=== PATIENT | female | born 1950 | race African-American/Black ===

== ENCOUNTER 2018-08-31 10:18 | Inpatient (IN) | payer OTHER, MEDICAID ==
[~2018-08-31] VITALS: Ht 157.5 cm; Wt 84.4 kg
[~2018-08-31 10:18] MED LIST: AMIO200T PO; AMLO5TAB PO; CYAN500T17 PO; DULO30EC PO; FLUO40CA6 PO; GABA100C PO; HYDR1TAB28 PO; LORA-476 PO; THIA50TA PO; WARF-18 PO; WARF2.5T77 PO
[2018-08-31 10:30] VITALS: BP 135/68
--- NOTE | 2018-08-31 10:36 | NUR ---
PT AMBULATES TO BED 3
--- NOTE | 2018-08-31 10:41 | NUR ---
PATIENT PRESENTS TO ED WITH C/O COUGHING UP BLOODY PHLEGM. PT REPORTS BEING DIAGNOSED WITH PNEUMONIA 2 DAYS AGO. SYMPTOMS ARE WORSENING. PAIN IN CHEST AND BACK, SORE STOMACH. 7/10 PAIN. HX: HTN, PACEMAKER, AFIB, CHRONIC FATIGUE, FIBROMYALGIA RX: AMIODORONE, ELIQUIS, ATIVAN, ESTRODIAL .AAOX4 WITH EVEN AND STEADY GAIT; RHOCHI LUNGS SOUNDS KIM; COUGHING NOTED, HR EVEN AND REGULAR; PATIENT POSITIONED FOR COMFORT; HOB ELEVATED; BEDRAILS UP X2; BED DOWN. ER MD MADE AWARE OF PT STATUS.
--- NOTE | 2018-08-31 10:44 | NUR ---
Patient being evaluated by physician at bedside.
[2018-08-31] MEDS ORDERED: ACETAMINOPHEN 650 MG/20.3 ML UDC PO ONE (11:00)
[2018-08-31 11:17] LABS: BASOPHILS % (AUTO) 0.2 % (0.0-2.0); EOSINOPHILS # (AUTO) 0.1 K/uL (0-0.4); EOSINOPHILS % (AUTO) 0.8 % (0.0-4.0); HEMATOCRIT 30.8 % (36-48); HEMOGLOBIN 10.3 g/dL (12.0-16.0); LYMPHOCYTES % (AUTO) 10.6 % (20.5-51.1); MEAN CORPUSCULAR HEMOGLOBIN 29 pg (27-31); MEAN CORPUSCULAR HGB CONC 34 g/dL (33-37); MEAN CORPUSCULAR VOLUME 85.4 fL (80-94); MONOCYTES # (AUTO) 1.4 K/uL (0.8-1.0); MONOCYTES % (AUTO) 14.7 % (1.7-9.3); NEUTROPHILS # (AUTO) 7.2 K/uL (1.8-7.7); NEUTROPHILS % (AUTO) 73.7 % (42.2-75.2); PLATELET COUNT (AUTO) 205 K/uL (140-450); RED BLOOD CELL COUNT(AUTO) 3.61 MIL/uL (4.20-5.40); RED CELL DISTRIBUTION WIDTH 15.4 % (11.6-13.7); WHITE BLOOD COUNT (AUTO) 9.8 K/uL (4.8-10.8)
--- NOTE | 2018-08-31 11:27 | NUR ---
PT TAKEN TO XRAY VIA WHEELCHAIR
--- NOTE | 2018-08-31 13:45 | NUR ---
PT STATED HUNGRY, SMALL SNACK OFFERED.
--- NOTE | 2018-08-31 14:00 | NUR ---
HOME MEDICATIONS OBTAINED FROM PT, AND PUT IN THE COMPUTOR.
[2018-08-31] MEDS ORDERED: MEDICATION REC. PHARMACY CONS. 1 EA MISC MC PRN (14:10)
[2018-08-31] MEDS ORDERED: APIX5TAB PO (14:16)
[2018-08-31] MEDS ORDERED: LAM200 PO (14:16)
[2018-08-31] MEDS ORDERED: [UNRECOGNIZED DRUG - CODE] PO (14:16)
[2018-08-31] MEDS ORDERED: [UNRECOGNIZED DRUG - CODE] IM (14:16)
[2018-08-31] MEDS ORDERED: FLUO10CA21 PO (14:16)
--- NOTE | 2018-08-31 14:18 | NUR ---
PT IS NOT ABLE TO GIVE URINE AT THIS TIME, ED MD AWARE.
[2018-08-31] MEDS ORDERED: HYDROcodone/APAP 7.5/325 MG 1 TAB PO PRN (14:20)
[2018-08-31] MEDS ORDERED: DOCUSATE SODIUM 100 MG GELCAP PO PRN (14:20)
[2018-08-31] MEDS ORDERED: ACETAMINOPHEN 325 MG TAB PO PRN (14:20)
--- NOTE | 2018-08-31 14:30 | NUR ---
PT TAKEN TO TELE FLOOR BY MAYRA PRUITT AND DEBBIE OTT
--- NOTE | 2018-08-31 14:35 | NUR ---
PT ARRIVED FROM ER IN [facility], AMBULATED WITH STEADY GAIT TO HALLWAY TO BED 128B, PT HERE ACCOMPANIED BY BOYFRIEND, PT PLACED ON BOX CAR BRACER, PT ON 2L NC, AWAKE ALERT O X4, RESP EVEN UNLABORED, OCCASIONAL COUGHS, SKIN WARM DRY COLOR SLIGHTLY PALE, MOVES ALL EXT, SKIN INTACT, MRSA COLLECTED, PT ORIENTED TO ROOM AND FLOOR, POC REVIEWED, ALL SAFETY MEASURES IN PLACE, WILL CONTINUE TO MONITOR.
--- NOTE | 2018-08-31 14:35 | NUR ---
Pt transferred to Tele via GURNEY, GOES TO ROOM 128B, REPORT GIVEN TO MAYRA FONG AT BEDSIDE, ALL BELONGS GOES WITH PT .
[2018-08-31 14:39] LABS: ANION GAP 13.2 (8-16); CARBON DIOXIDE 27.1 mmol/L (21-32); CREATININE 0.9 mg/dL (0.6-1.3); POTASSIUM 3.3 mmol/L (3.5-5.1)
[2018-08-31 14:48] LABS: PROTHROMBIN TIME 9.9 secs (10.8-13.4)
--- NOTE | 2018-08-31 14:50 | NUR ---
RT AT BEDSIDE FOR ABG.
[2018-08-31 14:58] LABS: CHOL/HDL RATIO 1.3 (1-4.5); FREE T4 (FREE THYROXINE) 1.69 ng/dL (0.76-1.46); MAGNESIUM 1.8 mg/dL (1.8-2.4); PHOSPHORUS 3.3 mg/dL (2.5-4.9)
--- NOTE | 2018-08-31 15:15 | NUR ---
PT UP TO BATHROOM WITH MINIMAL ASSIST.
--- NOTE | 2018-08-31 15:40 | NUR ---
DR SHAFFER AT BEDSIDE.
[2018-08-31] MEDS: NACL 0.9% 1,000 ML IV SCH (15:53)
[2018-08-31 17:00] VITALS: BP 125/67
--- NOTE | 2018-08-31 17:30 | NUR ---
PT AMBULATED TO BATHROOM WITH STEADY SLOW GAIT, ASSISTED BACK TO BED, CALL HART WITHIN REACH, BED ALARM ON, WILL CONTINUE TO MONITOR.
[2018-08-31 18:11] LABS: APPEARANCE,URINE CLEAR (CLEAR); BILIRUBIN,URINE NEGATIVE (NEGATIVE); BLOOD, URINE NEGATIVE (NEGATIVE); COLOR,URINE YELLOW (YELLOW); LEUKOCYTE ESTERASE ,URINE NEGATIVE (NEGATIVE); NITRITE, URINE NEGATIVE (NEGATIVE); UGLUCOSE NEGATIVE (NEGATIVE)
--- NOTE | 2018-08-31 18:15 | NUR ---
DINNER TRAY DELIVERED TO PT, PT ENCOURAGED TO SIT UP IN CHAIR FOR DINNER BUT PT STATED SHE PREFERS TO EAT IN BED, ASSISTED WITH DINNER TRAY OVER THE BED.
[2018-08-31 18:18] LABS: BARBITURATE, URINE NEG. ng/ml (NEG <=200); BENZODIAZEPINE, URINE NEG. ng/mL (NEG <=200); CANNABINOID, URINE NEG. ng/mL (NEG <=50); COCAINE, URINE NEG. ng/mL (NEG <=300); OPIATE, URINE POS. ng/mL (NEG <=2000); PHENCYCLIDINE SCREEN,URINE NEG. ng/mL (NEG <=25)
--- NOTE | 2018-08-31 18:40 | NUR ---
PT WITH PERSISTENT COUGHS, SPUTUM CULTURE COLLECTED.
[2018-08-31] MEDS: POTASSIUM CHLORIDE 10 MEQ TABER PO SCH ×2 (18:48→19:42)
--- NOTE | 2018-08-31 18:50 | NUR ---
PT UP TO BATHROOM WITH MINIMAL ASSIST, PT VOMITED X2, PT STATES I HAVE TO VOMIT BECAUSE I HAD GASTRIC BYPASS. Addendum: 08/31/18 at 1945 by Linette Cohen RN K-DUR PILLS HELD FOR NOW
--- NOTE | 2018-08-31 19:22 | NUR ---
REPORT GIVEN TO COUGAR HUNTER NURSE, PT IN STABLE CONDITION.
--- NOTE | 2018-08-31 19:23 | NUR ---
RECEIVED PT IN STABLE CONDITION FROM AM NURSE. AWAKE,ALERT AND ORIENTED X4. ON TELE MONITOR. WITH NO C/O ANY DISCOMFORT NOR PAIN NOTED. ON O22L/NC. ON O22L/NC WITH EXTENSION SO SHE CAN GO TO BATHROOM WITH O2 . HAS INTERMITTENT PRODUCTIVE COUGH . AM NURSE ABLE TO COLLECT SPUTUM SPECIMEN FOR CULTURE. RESPIRATION IS EVEN AND UNLABORED. IVF INFUSING WELL ON THE LT FA G#22. CLEAR AND PATENT. PLAN OF CARE DISCUSSED AND VERBALIZED UNDERSTANDING. BED ON LOWEST POSITION. FREQUENT ROUNDS NEEDED. CALL LIGHT PLACED WITHIN EASY REACH. FOE SAFETY, SIDE RAILS UP X2 AND BED ALARM ON . INSTRUCTED TO CALL FOR ANY ASSISTANCE. WILL CONTINUE TO MONITOR.
[2018-08-31] MEDS: ALBUTEROL SULFATE/IPRATROPIU 3 ML SOL IH SCH (19:56)
[2018-08-31 20:00] VITALS: BP 128/68
--- NOTE | 2018-08-31 20:50 | NUR ---
UP TO BATHROOM WITH STANDBY ASSISTANCE. VOIDED AND HAD A MODERATE SOFT STOOL . ALSO ABLE TO COLLECT SPECIMEN FOR INFLUENZA A AND B SCREEN. SEND TO LAB.
[2018-08-31] MEDS ORDERED: PROMETH/CODEINE 6.25-10MG/5ML 5 ML UDC PO PRN (22:00)
[2018-08-31] MEDS: CLINDAMYCIN PHOS 600MG/D5W PM 50 ML IV SCH (22:08)
--- NOTE | 2018-08-31 22:26 | NUR ---
PT HAS BEEN COUGHING A LOT . DR. SANCHEZ WITH ORDER FOR COUGH MEDICINE ,GIVEN .
[2018-08-31 23:45] VITALS: BP 138/66
[2018-09-01] MEDS: ALBUTEROL SULFATE/IPRATROPIU 3 ML SOL IH SCH ×4 (00:58→18:46)
--- NOTE | 2018-09-01 00:58 | NUR ---
PT AWAKE. GETTING BREATHING TREATMENT AT THIS TIME.
--- NOTE | 2018-09-01 02:06 | NUR ---
SLEEPING AT THIS TIME. WITH O22L/NC. NO SOB NOR DISTRESS NOTED. WILL CONTINUE TO MONITOR.
[2018-09-01] MEDS ORDERED: methylPREDNISolone SS 40 MG/ML VIAL IVP SCH (04:00)
--- NOTE | 2018-09-01 04:00 | NUR ---
PT SLEEPING AT THIS TIME. JUST STARTED TO GET SOME SLEEP. NO DISTRESS NOTED.
[2018-09-01] MEDS: CLINDAMYCIN PHOS 600MG/D5W PM 50 ML IV SCH (04:37)
[2018-09-01] MEDS: PROMETH/CODEINE 6.25-10MG/5ML 5 ML UDC PO PRN ×3 (04:54→18:22)
--- NOTE | 2018-09-01 06:00 | NUR ---
UP TO BATHROOM SEVERAL TIMES DURING THE NIGHT. NO SOB NOTED .VOIDED WELL.
[2018-09-01] MEDS: BUDESONIDE 0.5 MG/2 ML NEBU INH SCH ×2 (06:29→18:53)
[2018-09-01 06:58] LABS: BASOPHILS % (AUTO) 0.3 % (0.0-2.0); EOSINOPHILS % (AUTO) 0.5 % (0.0-4.0); HEMATOCRIT 28.5 % (36-48); HEMOGLOBIN 9.5 g/dL (12.0-16.0); LYMPHOCYTES # (AUTO) 0.4 K/uL (2.5-16.5); MEAN CORPUSCULAR HEMOGLOBIN 28 pg (27-31); MEAN CORPUSCULAR HGB CONC 33 g/dL (33-37); MEAN CORPUSCULAR VOLUME 85.2 fL (80-94); MONOCYTES # (AUTO) 0.7 K/uL (0.8-1.0); MONOCYTES % (AUTO) 7.8 % (1.7-9.3); NEUTROPHILS # (AUTO) 8.3 K/uL (1.8-7.7); NEUTROPHILS % (AUTO) 87.4 % (42.2-75.2); PLATELET COUNT (AUTO) 199 K/uL (140-450); RED BLOOD CELL COUNT(AUTO) 3.35 MIL/uL (4.20-5.40); RED CELL DISTRIBUTION WIDTH 15.3 % (11.6-13.7); WHITE BLOOD COUNT (AUTO) 9.5 K/uL (4.8-10.8)
--- NOTE | 2018-09-01 07:25 | NUR ---
ENDORSED PT IN STABLE CONDITION TO AM NURSE.
--- NOTE | 2018-09-01 07:26 | NUR ---
RECEIVED BEDSIDE REPORT FROM CUSTOMS DIRECTOR NURSE. PATIENT IS AWAKE, ALERT AND ORIENTEDX4. NO SIGNS OF DISTRESS ON 2L NC. PATIENT HAS INTERMITTENT COUGH. SKIN IS INTACT. PATIENT IS CONTINENT. FALL RISK PROTOCOL IN PLACE D/T MILD WEAKNESS W MULTIPLE LINES OXYGEN, TELE MONITOR, AND IV. IV ON L FA 22G INFUSING NS AT 60. CLEAN, DRY AND INTACT. BED IN LOW POSITION. CALL LIGHT WITHIN REACH. PATIENT ABLE TO MAKE NEEDS KNOWN.
[2018-09-01 08:00] VITALS: BP 149/82
--- NOTE | 2018-09-01 08:30 | NUR ---
PATIENT HAS BEEN SCREENED AND CATEGORIZED HIGH NUTRITION RISK. PATIENT WILL BE SEEN WITHIN 1-2 DAYS OF ADMISSION. 09/01/18-09/02/[address]
[2018-09-01] MEDS: NACL 0.9% 1,000 ML IV SCH ×2 (08:47→23:40)
[2018-09-01] MEDS: HYDROCHLOROTHIAZIDE 25 MG TAB PO SCH (08:49)
[2018-09-01] MEDS: LACTOBACILLUS RHAMNOSUS GG 1 EACH CAP PO SCH (08:49)
[2018-09-01] MEDS: amLODIPine 5 MG TAB PO SCH (08:49)
[2018-09-01] MEDS: methylPREDNISolone SS 40 MG/ML VIAL IVP SCH ×2 (08:50→20:52)
[2018-09-01] MEDS: LOSARTAN 50 MG TAB PO SCH (08:50)
[2018-09-01] MEDS: AMIODARONE 200 MG TAB PO SCH (08:50)
[2018-09-01] MEDS: ASCORBIC ACID 500 MG TAB PO SCH (08:51)
[2018-09-01] MEDS: APIXABAN 2.5 MG TAB PO SCH ×2 (08:51→21:00)
[2018-09-01] MEDS ORDERED: ESTRADIOL TP SCH ×2 (09:00→17:33)
[2018-09-01] MEDS: LORazepam 1 MG TAB PO PRN ×2 (09:06→18:21)
--- NOTE | 2018-09-01 09:07 | NUR ---
ADMINISTERED MEDS. PATIENT TOLERATED WELL. PATIENT COMPLAINTS OF ANXIETY AND WANTS ATIVAN. ADMINISTERED PRN ATIVAN. PATIENT TOLERATED WELL. WILL CONTINUE TO MONITOR Addendum: 09/01/18 at 0909 by Ciara Mejia RN EDUCATED ON MEDS INCLUDING SIDE EFFECTS. PATIENT VERBALIZED UNDERSTANDING
[2018-09-01] MEDS: BENZOCAINE/MENTHOL 1 LOZ MM PRN ×3 (10:31→21:22)
--- NOTE | 2018-09-01 10:51 | NUR ---
S.T. BEDSIDE SWALLOW EVAL COMPLETED See report for details. Pt presents w/ adequate oropharyngeal swallow function for textures given. No overt s/s aspiration observed after swallows of solids and thin liquids by straw, self fed. Recommend: 1) Continue regular texture diet as tolerated. 2) P.O. meds one at a time. No further tx indicated at this time. [facility] to [facility] [place] [facility]. D/w pt, significant other and RN Ciara. Time: [id number]
--- NOTE | 2018-09-01 11:34 | NUR ---
PATIENT IS SLEEPING. NO SIGNS OF DISTRESS. FAMILY AT BEDSIDE
[2018-09-01 12:00] VITALS: BP 146/74
--- NOTE | 2018-09-01 12:25 | NUR ---
ADMINISTERED PRN COUGH MED. EDUCATED ON SIDE EFFECTS AND FOR PATIENT TO CALL WHEN NEEDED TO GET UP. PATIENT ABLE TO MAKE NEEDS KNOWN. TOLD RT PATIENT MAY NEED A BREATHING TX, INCREASED HER OXYGEN AT 4L VIA NC 93%, PATIENT AMBULATED TO THE RESTROOM AND BACK TO BED. RT AWARE. WILL CONTINUE TO MONITOR
[2018-09-01 12:58] LABS: ANION GAP 13.7 (8-16); CREATININE 0.8 mg/dL (0.6-1.3); POTASSIUM 3.7 mmol/L (3.5-5.1)
--- NOTE | 2018-09-01 13:05 | NUR ---
PATIENT WITH RT GETTING A BREATHING TX AT THIS TIME. WILL CONTINUE TO MONITOR. PATIENT IN NO DISTRESS
--- NOTE | 2018-09-01 13:20 | NUR ---
PATIENT ON RA. PER DR PEREYRA MAINTAIN OXYGEN SAT AT 90% OR GREATER
--- NOTE | 2018-09-01 14:43 | NUR ---
ADMINISTERED PRN LOZENGE PATIENT TOLERATED WELL. EDUCATED ON MED AND SIDE EFFECTS. PATIENT VERBALIZED UNDERSTANDING. PATIENT GOT A BED BATH AND NEW GOWN AND SOCKS AT THIS TIME. WILL CONTINUE TO MONITOR THE PATIENT. CALL LIGHT WITHIN REACH
[2018-09-01 16:00] VITALS: BP 115/56
--- NOTE | 2018-09-01 16:00 | NUR ---
PATIENT IN BED. FAMILY AT BEDSIDE. NO SIGNS OF DISTRESS. WILL CONTINUE TO MONITOR THE PATIENT
[2018-09-01] MEDS: ALBUTEROL SULFATE/IPRATROPIU 3 ML SOL IH PRN ×2 (16:48→23:44)
--- NOTE | 2018-09-01 18:25 | NUR ---
PATIENT FEELS ANXIETY AND HAS A COUGH. PRN COUGH MED AND ANXIETY MED GIVEN. PATIENT TOLERATED WELL. EDUCATED ON SIDE EFFECTS. PATIENT WANTS TO SIT ON CHAIR. I ALLOWED PATIENT TO SIT IN CHAIR WHILE SIGNIFICANT OTHER IS THERE BUT TOLD THEM TO CALL ME IF SIGNIFICANT OTHER LEAVES THE ROOM BECAUSE SHE NEEDS TO BE BACK IN BED D/T MEDS THAT MAKE HER DROWSY
--- NOTE | 2018-09-01 19:20 | NUR ---
gave bedside report to security shift manager nurse. patient endorsed in stable condition.
--- NOTE | 2018-09-01 19:21 | NUR ---
RECEIVED PT IN STABLE CONDITION FROM AM NURSE.AWAKE,ALERT AND ORIENTED X4. ON TELE MONITOR-SR. AMBULATORY TO BATHROOM WITH STANDBY ASSIST. NO SOB NOTED. RT JUST PUT BACK TO O22/NC . IVF INFUSING WELL ON THE LT FA#22. CLEAR AND PATENT. PLAN OF CARE DISCUSSED AND VERBALIZED UNDERSTANDING. BED ON LOW POSITION. FREQUENT ROUNDS NEEDED. SIDE RAILS UP X2. CALL LIGHT PLACED WITHIN REACH. WILL CONTINUE TO MONITOR.
--- NOTE | 2018-09-01 19:59 | NUR ---
ROOM AIR SATS 87%. PLACED PT ON 2LNC
[2018-09-01 20:00] VITALS: BP 121/61
[2018-09-01] MEDS: DOXYCYCLINE 100 MG in DEXTROSE 5% 100 ML IV SCH (20:52)
--- NOTE | 2018-09-01 21:22 | NUR ---
PT C/O SORE THROAT. CEPACOL LOZENGES GIVEN ORDERED.
[2018-09-01 23:45] VITALS: BP 135/69
[2018-09-02] VITALS (46 sets, daily range): BP systolic 88–188; BP diastolic 36–132
--- NOTE | 2018-09-02 | NUR ---
PLACED PT ON NRB MASK AT 15 L. PT SATS ON 2L WERE 82%. ON HHNTX SATS WERE ONLY 88%
--- NOTE | 2018-09-02 00:30 | NUR ---
PT CALLED AND SAID O2 IS STRONG. BUT O2 SAT 96%. CALLED LA NENA,RT . DECREASE O2 TO 10L. O2 SAT 95% AT THIS TIME.
[2018-09-02] MEDS: PROMETH/CODEINE 6.25-10MG/5ML 5 ML UDC PO PRN (00:41)
--- NOTE | 2018-09-02 00:41 | NUR ---
PT STILL COUGH A LOT. O2 SAT WITH NON REBREATHER MASK 94%. PHENERGAN WITH CODEINE 1OML PO GIVEN . WILL CONTINUE TO MONITOR.
[2018-09-02] MEDS: LORazepam 1 MG TAB PO PRN (01:17)
--- NOTE | 2018-09-02 01:17 | NUR ---
PT VERY ANXIOUS. ATIVAN 2 MG PO GIVEN. WILL CONTINUE TO MONITOR.
--- NOTE | 2018-09-02 01:20 | NUR ---
PT WOULD NOT KEEP NRB MASK ON. CHANGED TO OXYMIZER AT 15L. SATS 94%
[2018-09-02] MEDS: BENZOCAINE/MENTHOL 1 LOZ MM PRN (02:16)
--- NOTE | 2018-09-02 02:25 | NUR ---
PT STILL WITH SOB 02 SAT FROM 77% -82% WITH O2 OXYMIZER . DR. MOE MADE AWARE. WITH ORDERS TO DO ABG AND BIPAP PRN. RT LA NENA,MADE AWARE ABOUT THE NEW ORDERS.
[2018-09-02] MEDS: NACL 0.9% 1,000 ML IV SCH (02:54)
--- NOTE | 2018-09-02 02:54 | NUR ---
PT PLACED ON BIPAP DUE TO SOB. IPAP 12 EPAP 6 RR 12 100% FIO2. ABG DRAWN ON 15 OXYMIZER
--- NOTE | 2018-09-02 03:30 | NUR ---
PT ASLEEP. WITH NO SOB NOTED .ON BIPAP O2 SAT 96%-97%.
--- NOTE | 2018-09-02 05:10 | NUR ---
PT WET THE BED. CLEANED AND KEPT DRY. BED LINENS CHANGED.
[2018-09-02 06:19] LABS: FOLIC ACID 16.4 ng/mL (>3.0)
--- NOTE | 2018-09-02 06:30 | NUR ---
AM RT CAME AND GIVE BREATHING TREATMENT.
[2018-09-02] MEDS: ALBUTEROL SULFATE/IPRATROPIU 3 ML SOL IH SCH ×3 (06:32→18:41)
--- NOTE | 2018-09-02 06:32 | NUR ---
REC'D PT ON BOUCHRA V60 BIPAP SETTINGS 12\6 RR 12 FIO2 100% ALARMS ON AND AUDIBLE AND AMBU BAG AT HOB, I\L TXS GIVEN WITH DUONEB 3ML AND PULMICORT 0.5MG WITH NO ADVERSE REACTION POST TX, B\S ARE DIMINISHED BILATERALLY, PT IS WEARING MED FACE MASK WITH PROTETIC GEL IN PLACE PT IS RESTING
[2018-09-02 06:36] LABS: ANION GAP 13.6 (8-16); CARBON DIOXIDE 25.4 mmol/L (21-32); CREATININE 0.7 mg/dL (0.6-1.3)
[2018-09-02 06:41] LABS: HEMATOCRIT 27.5 % (36-48); HEMOGLOBIN 9.2 g/dL (12.0-16.0); MEAN CORPUSCULAR HEMOGLOBIN 28 pg (27-31); MEAN CORPUSCULAR HGB CONC 34 g/dL (33-37); MEAN CORPUSCULAR VOLUME 83.3 fL (80-94); PLATELET COUNT (AUTO) 225 K/uL (140-450); WHITE BLOOD COUNT (AUTO) 21.5 K/uL (4.8-10.8)
[2018-09-02] MEDS: BUDESONIDE 0.5 MG/2 ML NEBU INH SCH ×2 (06:43→18:41)
[2018-09-02 06:44] LABS: PHOSPHORUS 3.2 mg/dL (2.5-4.9)
--- NOTE | 2018-09-02 07:12 | NUR ---
PT ASLEEP. ON BIPAP WITH O2 SAT 97%. NO SOB NOTED.
[2018-09-02 07:19] LABS: LYMPHOCYTES % (MANUAL) 10 % (20-46); MONOCYTES % (MANUAL) 7 % (5-12)
--- NOTE | 2018-09-02 07:35 | NUR ---
RECEIVED PT ON BED, AWAKEDROWSY AT TIMES, BUT AROUSABLE, ORIENTED X4. ON BIPAP WITH 100% FI02 WITH O2 SATS OF 93%. RESPIRATIONS AT 26/MIN. NO SOB NOTED. NO C/O PAIN 8 Addendum: 09/02/18 at 1103 by Rohini Wade RN PLS DISREGARD ABOVE NOTES, INCOMPLETE ENTRY.
--- NOTE | 2018-09-02 07:35 | NUR ---
ENDORSED PT IN STABLE CONDITION TO AM NURSE.
--- NOTE | 2018-09-02 07:35 | NUR ---
RECEIVED PT ON BED, AWAKE, DROWSY AT TIMES, BUT AROUSABLE, ORIENTED X4. ON BIPAP WITH 100% FI02 WITH O2 SATS OF 93%. RESPIRATIONS AT 26/MIN. NO SOB NOTED. NO C/O PAIN AT THIS TIME. IV TO LT HAND PATENT AND INTACT. CHEST, COARSE, DIMINISHED AIR ENTRY TO THE BASES, ABDOMEN SOFT, BOWEL SOUNDS PRESENT. BED ON LOW POSITION WITH 3 SIDE RAILS RAISED UP. INSTRUCTED PT TO CALL FOR ASSISTANCE, CALL LIGHT WITHIN REACH, VERBALIZED UNDERSTANDING
[2018-09-02] MEDS: FERROUS SULFATE 325 MG TABEC PO SCH (08:00)
--- NOTE | 2018-09-02 08:00 | NUR ---
PER MARLON-RESPIRATORY THERAPIST, PT SHOULD STAY ON BIPAP FOR NOW ( PT'S OXYGEN SATURATION DROPPED TO THE 80'S WHEN BIPAP WAS TAKEN OFF AND TRIED TO SWITCH TO OXYMIZER). DR. RIVERA AT THE BEDSIDE DOING ROUNDS, ORDERED PT TO BE NPO FOR NOW.
[2018-09-02 08:21] LABS: FERRITIN 233 ng/mL (15-150)
[2018-09-02] MEDS: HYDROCHLOROTHIAZIDE 25 MG TAB PO SCH (09:00)
[2018-09-02] MEDS: ASCORBIC ACID 500 MG TAB PO SCH (09:00)
[2018-09-02] MEDS: LOSARTAN 50 MG TAB PO SCH (09:00)
[2018-09-02] MEDS: AMIODARONE 200 MG TAB PO SCH (09:00)
[2018-09-02] MEDS: APIXABAN 2.5 MG TAB PO SCH ×2 (09:00→20:20)
[2018-09-02] MEDS: amLODIPine 5 MG TAB PO SCH (09:00)
[2018-09-02] MEDS: LACTOBACILLUS RHAMNOSUS GG 1 EACH CAP PO SCH (09:00)
--- NOTE | 2018-09-02 09:00 | NUR ---
PT VOIDED 300 MLS OF CLEAR YELLOW URINE ON THE BEDPAN, PERINEAL DONE.
--- NOTE | 2018-09-02 09:45 | NUR ---
DR. SLADE ON ROUNDS, UP DATE GIVEN AT THE BEDSIDE. PT RESTING, AROUSABLE, ON BIPAP WITH 100% FI02 WITH SATS OF 95%. MD ORDERED TO TRANSFER PT TO ICU FOR CLOSE MONITORING AND POSSIBLE INTUBATION. ICU CHARGE NURSE NOTIFIED, PT IS GOING TO ICU BED 2.
[2018-09-02] MEDS ORDERED: VANCOMYCIN PER PHARMACY MC PRN (09:50)
--- NOTE | 2018-09-02 10:00 | NUR ---
PT WHEELED TO ICU IN STABLE CONDITION, WITH BIPAP. RESPIRATORY THERAPISTS PRESENT. DR. PEREYRA NOTIFIED. ENDORSED CARE TO ICU CHARGE NURSE BRIGID. ALL BELONGINGS SENT WITH PT TO ICU BED 2. CALLED PT'S DAUGHTER RAUL AND NOTIFIED WITH THE TRANSFER, VERBALIZED UNDERSTANDING.
--- NOTE | 2018-09-02 10:05 | NUR ---
PT MOVED TO ICU BED [address] SLADE DECREASED FIO2 TO 80% TO TITRATE ABOVE 92% PT IS AWAKE AND ALERT. MAYRA HAQ AT BEDSIDE
--- NOTE | 2018-09-02 10:05 | NUR ---
PT TRANSFERRED FROM TELEMETRY ROOM 128B. PT IS AAOX4, ABLE TO FOLLOW COMMANDS. PT IS AFEBRILE. DENIES PAIN. SINUS RHYTHM ON MONITOR. PACEMAKER IN PLACE. PT IS ON BIPAP I/E 05/22, FIO2 80%. RHONCHI AUSCULTATED BILATERALLY. PT IS TACHYPNEIC RR 43, O2 SAT 90%. ABDOMEN SOFT, ROUND, NONTENDER W/ ACTIVE BOWEL SOUNDS. PERIPHERAL IV G20 TO LEFT WRIST PATENT AND INTACT, RUNNING NS AT 30 ML/HR. SKIN IS INTACT, DRY AND WARM TO TOUCH. HOB 30 DEGREES, BED IN LOWEST POSITION, CALL LIGHT WITHIN REACH. WILL CONTINUE TO MONITOR.
[2018-09-02] MEDS: DOXYCYCLINE 100 MG in DEXTROSE 5% 100 ML IV SCH ×2 (10:13→21:42)
[2018-09-02] MEDS: methylPREDNISolone SS 40 MG/ML VIAL IVP SCH ×2 (10:17→20:18)
--- NOTE | 2018-09-02 10:25 | NUR ---
DR. PAULINO AT BEDSIDE, TALKING TO PT. WILL FOLLOW UP ON ORDERS.
--- NOTE | 2018-09-02 10:35 | NUR ---
WOLFE CATHETER INSERTED. YELLOW URINE NOTED, DRAINING TO GRAVITY DRAINAGE BAG. PT TOLERATED WELL.
--- NOTE | 2018-09-02 10:54 | NUR ---
CHEST X-RAY DONE. PT TOLERATED WELL. PT STILL ON BIPAP 12/6, 70%FIO2. PT IS STILL TACHYPNEIC AT RR 40, SPO2 93%. INTERMITTENT COUGH NON-PRODUCTIVE COUGH NOTED. NO SIGNS OF ACUTE DISTRESS. WILL CONTINUE TO MONITOR.
--- NOTE | 2018-09-02 12:21 | NUR ---
abg drawn on lb without incident called to give results of abg and ordered to keep on bipap and to keep o2 sat at 90%
[2018-09-02] MEDS ORDERED: LORazepam 2 MG/ML VIAL IM/IVP PRN (12:25)
[2018-09-02] MEDS: VANCOMYCIN 750 MG in DEXTROSE 5% 250 ML IV SCH ×2 (12:26→23:38)
[2018-09-02] MEDS: guaiFENesin DM 200/20 MG-10 ML 10 ML UDC PO PRN (12:33)
[2018-09-02] MEDS ORDERED: FUROSEMIDE 20 MG/2 ML VIAL IVP SCH (12:46)
--- NOTE | 2018-09-02 13:53 | NUR ---
PT SEEN BY DR. LEE. WILL FOLLOW UP ON ORDERS. Addendum: 09/02/18 at 1408 by Anai Wren RN LENA CHILDS
--- NOTE | 2018-09-02 14:18 | NUR ---
PT'S DAUGHTER RAUL AT BEDSIDE, UPDATES GIVEN ON PT'S CONDITION.
--- NOTE | 2018-09-02 14:30 | NUR ---
09/02/18 RD INITIAL ASSESSMENT COMPLETED PLEASE REFER TO NUTRITION ASSESSMENT UNDER CARE ACTIVITY FOR ESTIMATED NUTRITIONAL NEEDS. 1. CONTINUE NPO MEDICALLY NECESSARY 2. WHEN PATIENT IS MEDICALLY STABLE AND CLEAR FROM RISK OF ASPIRATION, CONSIDER ADVANCING DIET TO CARDIAC WITH ENSURE MAX BID. 3. IF PATIENT REMAINS NPO CONSIDER ENTERAL NUTRITION 4. RECOMMEND IRON, VITAMIN C, VITAMIN B12, FOLATE, CALCIUM WITH VITAMIN D, AND A MULTIVITAMIN FOR HX OF GASTRIC BYPASS 5. RD TO FOLLOW-UP 3-5 DAYS, MODERATE RISK MILI STARK RD
--- NOTE | 2018-09-02 15:00 | NUR ---
CALLED DR. SLADE CONCERNING PT'S CONDITION AND DR. SLADE ORDERED TO HAVE PT INTUBATED. CALLED DR. STARK TO BEDSIDE AND SHE SPOKE WITH PT AND PT'S DAUGHTER CONCERNING INTUBATION. DR. LAIRD AT BEDSIDE TO INTUBATE PT, PT WAS INTUBATED AT 1524 WITH ET TUBE 7.0 @20 CM @LIP, B\S ARE DIMINISHED BILATERALLY, VENT SETTINGS AC 12 VT 450 PEEP 7 FIO2 100% SXN PT FOR C&S SMALL AMT OF THIN BLOOD RED SECRETIONS. WILL DO ABG IN ONE HOUR PER DR. MCCLAIN. AMBU BAG AT [facility] PT HAS WRISTS RESTRAINTS ON BOTH WRISTS. PT IS VERY AGITATED AT THIS TIME
[2018-09-02 15:07] LABS: THYROID STIMULATING HORMONE 0.36 uIU/mL (0.34-3.74)
--- NOTE | 2018-09-02 15:07 | NUR ---
RESIDENT PHYSICIAN DR. PEREYRA AT BEDSIDE TALKING TO PT AND DAUGHTER.
--- NOTE | 2018-09-02 15:24 | NUR ---
PT INTUBATED BY ER PHYSICIAN DR. LAIRD. ETT TO VENT W/ SETTINGS: AC/VC FIO2 100%, VT 450, RR 12, PEEP 7.
--- NOTE | 2018-09-02 15:30 | NUR ---
PROPOFOL STARTED AT 5 MCG/KG/MIN. DRY WEIGHT IS 75 KG.
[2018-09-02] MEDS ORDERED: LORazepam 2 MG/ML VIAL IM/IVP ONE (15:40)
[2018-09-02] MEDS ORDERED: LORazepam 2 MG/ML VIAL IM/IVP SCH (15:50)
--- NOTE | 2018-09-02 15:50 | NUR ---
OGT INSERTED. PLACEMENT CONFIRMED VIA AUSCULTATION. PT TOLERATED WELL.
[2018-09-02] MEDS ORDERED: ETOMIDATE 20 MG/10 ML VIAL IVP SCH (16:00)
[2018-09-02] MEDS ORDERED: SUCCINYLCHOLINE CHLORIDE 200 MG/10 ML VIAL IVP SCH (16:00)
[2018-09-02] MEDS ORDERED: MORPHINE SULFATE 2 MG/ML SYR IVP PRN (16:15)
--- NOTE | 2018-09-02 16:27 | NUR ---
ABG DRAWN ON LB WITHOUT INCIDENT AND AT 1635 DR. YANY BAILEY. BY MAYRA HAQ
[2018-09-02] MEDS: PROPOFOL 1000 MG/100 ML PREMIX 100 ML IV PRN ×2 (17:03→20:30)
[2018-09-02] MEDS: LORazepam 2 MG/ML VIAL IM/IVP PRN (17:53)
--- NOTE | 2018-09-02 17:55 | NUR ---
DR. SLADE CALLED BACK. NOTIFIED OF ABG RESULTS AND UPDATED ON PT'S CONDITION. GAVE ORDERS.
--- NOTE | 2018-09-02 18:30 | NUR ---
INCREASED PEEP [id number]
--- NOTE | 2018-09-02 18:46 | NUR ---
DR. MOE IN TO SEE PT. WILL FOLLOW UP ON ORDERS.
[2018-09-02] MEDS ORDERED: FUROSEMIDE 40 MG/4 ML VIAL IVP SCH (18:49)
--- NOTE | 2018-09-02 19:28 | NUR ---
REPORT GIVEN TO MANAGED CARE ANALYST RN FOR CONTINUITY OF CARE. NO S/SX OF ACUTE DISTRESS NOTED AT THIS TIME.
--- NOTE | 2018-09-02 19:30 | NUR ---
RECEIVED REPORT FROM MORNING RN, EMERSON, FOR CONTINUITY OF CARE. VS STABLE AT THIS TIME. PT AFEBRILE. RASS -3. FLACC 0. PT NONVERBAL AND UNABLE TO MAKE NEEDS KNOWN AT THIS TIME. PERRL. ETT TO VENT WITH SETTINGS AC12, FIO2 100%, TV 450, AND PEEP 5. LUNG SOUNDS CLEAR. RESPIRATIONS ARE EVEN AND UNLABORED. NO SOB NOTED. S1+S2 HEARD. SR TO ST ON MONITOR. PULSES ARE PALPABLE IN ALL EXTREMITIES. PT HAS EDEMA ON BLE 1+. SKIN IS WARM AND DRY TO TOUCH. OGT IN PLACE. PLACEMENT VERIFIED. NO RESIDUAL ASPIRATED. ABDOMEN ROUND, SOFT, AND NONDISTENDED. BS ACTIVE IN ALL QUADRANTS. WOLFE CATHETER IN PLACE. DRAINING CLEAR AND YELLOW URINE AT THIS TIME. PT HAS ADEQUATE URINARY OUTPUT. RECEIVED PT WITH LEFT HAND 20G, LEFT HAND 22G AND RIGHT HAND 22G PERIPHERAL IV ACCESSES. ALL LINES ARE PATENT, INTACT, AND ASYMPTOMATIC. RECEIVED PT ON PROPOFOL AT 40MCG/KG/MIN WITH THE DRY WEIGHT OF 75KG. PT HAS NS RUNNING AT 30ML/HR. RECEIVED PT WITH NON-BEHAVIORAL RESTRAINTS. CONSENT WAS SIGNED AND ORDER IN PLACE. KEPT HOB AT 30 DEGREES. ALL SAFETY PRECAUTIONS ARE IN PLACE. WILL CONTINUE TO MONITOR PT.
--- NOTE | 2018-09-02 19:33 | NUR ---
DECREASED FIO2 TO 90%. PEEP WAS INCREASED EARLIER SO TO TRITRATE FIO2 AND MAINTAIN SAO2 GREATER THAN 90%. SEE VENTILATOR FLOW SHEET FOR PARAMETERS Addendum: 09/02/18 at 1936 by Fer Richardson RT SEE 0 VENTILATOR FLOW SHEET FOR PARAMETERS
--- NOTE | 2018-09-02 19:45 | NUR ---
PLACED ANCHOR FAST ON PATIENT AND ETT AT 20CM @LIP
[2018-09-02] MEDS: CEFEPIME 1,000 MG in DEXTROSE 5% 50 ML IV SCH (20:18)
--- NOTE | 2018-09-02 20:35 | NUR ---
FIO2 DECREASED TO 65%, HR-118, SAO2-95%, RR-23 B/P-95/59. WILL CONTINUE TO MONITOR
--- NOTE | 2018-09-02 20:50 | NUR ---
DR. MOE AT BEDSIDE TO SEE PT. INFORMED HIM THAT PT'S RHYTHM IS NOW ST. WILL FOLLOW-UP WITH ANY NEW ORDERS.
--- NOTE | 2018-09-02 21:28 | NUR ---
PICC LINE WAS SUCCESSFULLY INSERTED BY PICC LINE NURSE, NATHANIEL GIRARD.
--- NOTE | 2018-09-02 21:59 | NUR ---
FIO2 DECREASED TO 55%. SAO2-95% HR-94, RR-27, B/S SLIGHT COARSENESS
--- NOTE | 2018-09-02 22:16 | NUR ---
INFORMED DR. MOE THAT THE CXR RESULT FOR THE PICC LINE PLACEMENT IS AVAILABLE. WILL FOLLOW UP WITH ANY NEW ORDERS.
--- NOTE | 2018-09-02 23:00 | NUR ---
FIO2 DECREASED TO 50%, SAO2-97% RR-26, HR-107, [id number] SECRETIONS WHEN SUCTIONING
[2018-09-03] VITALS (86 sets, daily range): BP systolic 84–163; BP diastolic 52–81
--- NOTE | 2018-09-03 00:01 | NUR ---
SR ON AMALGAMATOR. FLACC 0 AND RASS -3. VS REMAINS STABLE. RESPIRATIONS ARE EVEN AND UNLABORED. NO SOB NOTED. OXYGEN SATURATION AT 93% WITH FIO2 AT 50%. ETT AND OGT REMAINS SECURED IN PLACE. PT STILL ON PROPOFOL DRIP AT 18ML/HR OR 40MCG/KG/MIN. WILL CONTINUE TO MONITOR PT.
[2018-09-03] MEDS: PROPOFOL 1000 MG/100 ML PREMIX 100 ML IV PRN ×3 (00:40→18:24)
--- NOTE | 2018-09-03 02:00 | NUR ---
NO CHANGE IN PT'S CONDITION AT THIS TIME. VS REMAINS STABLE. SR ON MONITOR. RESPIRATIONS ARE EVEN AND UNLABORED. CHEST RISE SYMMETRIC. NO SOB NOTED. OXYGEN SATURATION WNL. HOB KEPT AT 30 DEGREES. ALL SAFETY PRECAUTIONS ARE IN PLACE. BED AT LOW POSSIBLE POSITION. WILL CONTINUE TO MONITOR PT.
--- NOTE | 2018-09-03 03:38 | NUR ---
KODY, FROM LAB, CAME IN THE UNIT TO FOLLOW-UP REGARDING AN ORDER FOR SPUTUM SPECIMEN SENT EARLIER TODAY. CALLED DR. MOE TO INFORM HIM. ORDER TO BE PUT IN PLACE AND NEW SPECIMEN TO BE COLLECTED.
[2018-09-03 06:28] LABS: BASOPHILS % (AUTO) 0.3 % (0.0-2.0); EOSINOPHILS % (AUTO) 0.1 % (0.0-4.0); HEMATOCRIT 26.7 % (36-48); HEMOGLOBIN 8.8 g/dL (12.0-16.0); LYMPHOCYTES # (AUTO) 0.5 K/uL (2.5-16.5); LYMPHOCYTES % (AUTO) 2.9 % (20.5-51.1); MEAN CORPUSCULAR HEMOGLOBIN 28 pg (27-31); MEAN CORPUSCULAR HGB CONC 33 g/dL (33-37); MONOCYTES # (AUTO) 1.2 K/uL (0.8-1.0); MONOCYTES % (AUTO) 7.2 % (1.7-9.3); NEUTROPHILS # (AUTO) 15.3 K/uL (1.8-7.7); NEUTROPHILS % (AUTO) 89.5 % (42.2-75.2); PLATELET COUNT (AUTO) 212 K/uL (140-450); RED BLOOD CELL COUNT(AUTO) 3.18 MIL/uL (4.20-5.40); WHITE BLOOD COUNT (AUTO) 17.1 K/uL (4.8-10.8)
[2018-09-03 06:34] LABS: CREATININE 0.8 mg/dL (0.6-1.3)
[2018-09-03 06:39] LABS: MAGNESIUM 1.5 mg/dL (1.8-2.4); PHOSPHORUS 2.6 mg/dL (2.5-4.9)
[2018-09-03] MEDS: ALBUTEROL SULFATE/IPRATROPIU 3 ML SOL IH SCH ×3 (06:45→18:52)
--- NOTE | 2018-09-03 06:45 | NUR ---
RCV'D PT INTUBATED AND ON MECHANICAL VENTILATION WITH A 7.0 ETT AT 19 CM AT LIP. VENT SETTINGS CHARTED. TUBE IS IN PLACE AND SECURED WITH ANCHOR-FAST.PT IS NOT ALERT. VENT IS CONNECTED TO RED OUTLET. ALARMS AUDIBLE. AMBU BAG AT BEDSIDE. NO SOB OR DISTRESS NOTED. HHN TX OF DUONEB IS GIVEN WITH NO ADVERSE REACTION. WILL CONTINUE TO MONITOR.
[2018-09-03] MEDS: BUDESONIDE 0.5 MG/2 ML NEBU INH SCH ×2 (07:30→18:52)
[2018-09-03] MEDS: FERROUS SULFATE 325 MG TABEC PO SCH (08:00)
--- NOTE | 2018-09-03 08:00 | NUR ---
PATIENT OPENS EYES TO VOICE, LOCALIZES TO PAIN, ON DIPRIVAN AT 45MCG/KG/HR., ON BILATERAL SOFT WRIST RESTRAINST WITH ORDER, PATIENT LOCALIZES TO PAIN, SHAKES HEAD FREQUENTLY,ATRIAL FIBRILLATION ON MONITOR, ENDOTRACHEAL TUBE SIZE 7 AND 19 ON TEETH LEVEL, ON VENTILATOR AC 12 FIO2 45% TIDAL VOLUME 450, PEEP 6, WITH OGT OATENT ON AUSCULTATION, NO RESIDUALS, NPO EXCEPT MEDICATIONS, WITH WOLFE CATHETER CLEAR YELLOW URINE IN UROBAG NOTED, PICC LINE AT RIGHT UPPER ARM-SITE ASYMPTOMATIC NORMAL SALINE 50 ML/HR INFUSING Addendum: 09/03/18 at 1423 by Rocio Kinney RN 0800 HOURS PERIPHERAL LINES: GAUGE 22 EACH AT LEFT AND RIGHT HAND-BOTH SITES ASYMPTOMATIC. SKIN INTACT. DRY WEIGHT 75 KGS.
[2018-09-03] MEDS: APIXABAN 2.5 MG TAB PO SCH ×2 (09:00→20:58)
[2018-09-03] MEDS: LOSARTAN 50 MG TAB PO SCH (09:00)
[2018-09-03] MEDS: DOXYCYCLINE 100 MG in DEXTROSE 5% 100 ML IV SCH (09:00)
[2018-09-03] MEDS: LACTOBACILLUS RHAMNOSUS GG 1 EACH CAP PO SCH (09:00)
[2018-09-03] MEDS: AMIODARONE 200 MG TAB PO SCH (09:00)
[2018-09-03] MEDS: CEFEPIME 1,000 MG in DEXTROSE 5% 50 ML IV SCH (09:00)
[2018-09-03] MEDS: methylPREDNISolone SS 40 MG/ML VIAL IVP SCH ×2 (09:00→20:57)
[2018-09-03] MEDS: ASCORBIC ACID 500 MG TAB PO SCH (09:00)
[2018-09-03] MEDS: PANTOPRAZOLE 40 MG INJ VIAL IVP SCH (09:00)
[2018-09-03] MEDS: amLODIPine 5 MG TAB PO SCH (09:00)
--- NOTE | 2018-09-03 09:25 | NUR ---
DR. SLADE IN. WITH ORDERS TO START ON MORPHINE DRIP TO TAPER OFF ON PROPOFOL.
--- NOTE | 2018-09-03 09:27 | NUR ---
DR. HUFF HERE FOR ROUNDS. NEW ORDER FOR NORMAL SALINE IV RATE TO INCREASE AT 100ML/HR
[2018-09-03] MEDS ORDERED: MAG SULF 2000 MG/WATER PREMIX 50 ML IV SCH (09:30)
[2018-09-03] MEDS: MORPHINE SULFATE 50 MG in NACL 0.9% 45 ML IV PRN (09:34)
[2018-09-03] MEDS: LORazepam 2 MG/ML VIAL IM/IVP PRN (10:18)
--- NOTE | 2018-09-03 11:20 | NUR ---
INCREASED PT FIO2 TO 60% DUE TO DESATTING. RN AWARE. NO SOB OR DISTRESS NOTED. WILL CONTINUE TO MONITOR.
[2018-09-03] MEDS: NACL 0.9% 1,000 ML IV SCH ×2 (11:27→22:15)
[2018-09-03] MEDS ORDERED: VANCOMYCIN 1GM/DEXT 5% PREMIX 200 ML IV SCH (12:00)
--- NOTE | 2018-09-03 14:24 | NUR ---
DAUGHTER, FAMILY AT BEDSIDE. UPDATE OF PATIENT'S CONDITION AND PLAN OF CARE
--- NOTE | 2018-09-03 14:59 | NUR ---
RD RECOMMENDATIONS FOR TUBE FEEDIN. IF PATIENT IS ON PROPOFOL, RECOMMEND REDUCING JEVITY TO 20 ML/HR WITH PROSOURCE NOCARB X4/DAY, AND FREE WATER FLUSH OF 125 ML Q4H -THIS WILL PROVIDE 1231 KCAL AND 86 GM OF PROTEIN WITH PROPOFOL, WHICH MEETS 100% OF KCAL NEEDS AND 86% OF PROTEIN NEEDS. 2. IF PATIENT IS NOT ON PROPOFOL, RECOMMEND JEVITY AT 40 ML/HR WITH PROSOURCE BID, AND FREE WATER FLUSH OF 75 ML Q4H -THIS WILL PROVIDE 1212 KCAL AND 83 GM OF PROTEIN, MEETING 100% OF ESTIMATED KCAL NEEDS AND 83% OF PROTEIN NEEDS. REFER TO THE NUTRITION INITIAL ASSESSMENT NOTES FOR ESTIMATED KCAL AND PROTEIN GOALS. MILI [address] RD
[2018-09-03] MEDS: LEVOFLOXACIN 750 MG/D5W PREMIX 150 ML IV SCH (15:41)
--- NOTE | 2018-09-03 16:11 | NUR ---
PM CARE RENDERED, ORAL, CATHETER CARE AND ROUTINE REPOSITIONING DONE. PATIENT TOLERATED
--- NOTE | 2018-09-03 19:30 | NUR ---
RECEIVED REPORT FROM FLO NUNEZ AM SHIFT. PT IS OPEN EYES,WHEN CALL HER NAME, GIVE SIGN NO BY SHAKE HER HEAD OR NOD FOR YES. DENIAL ANY PAIN AT THIS TIME. PT IS CONTINUE ON SEDATION, PT ON ETT TO VENT WITH SETTING AC 12 TV 450 AND FIO2 50% PEEP 6, TOLERATED WELL. NO S/S OF RESP DISTRESS, NO SOB. BILATERAL LUNGS SOUND RHONCHI. AFIB ON CARDIAC MNONITOR, PT ON PACEMAKER TO LEFT CHEST. PICC LINE TO LARON DOUBLE LUMENS. PERIPHERAL LINES NO 22 TO RIGHT HAND,LEFT HAND AND LEFT WRIST. DIPRIVAN AT 10 MCG/KG/MIN AND MORPHINE DRIPS AT 2 MG/HR. IV NS 100 CC/HR. PT ON OGT WITH FEEDING TUBE JEVITY 1.2 AT 20 CC/HR NO RESIDUAL NOTED. PLACEMENT CONFIRM WITH AUSCULTATION.H2O FLUSH AT 100 CC 4HRS ORDER. ABD SOFT NON DISTENDED, NO EDEMA NOTED. SKIN INTACT. F/C IN PLACE WITH YELLOW CLEAR URINE NOTED. CONTINUE TO MONITOR PT CLOSELY.
--- NOTE | 2018-09-03 20:30 | NUR ---
ABEL SEBASTIAN BOY FRIEND AT BED SIDE
--- NOTE | 2018-09-03 20:45 | NUR ---
PROPOFOL WAS TITRATE DOWN TO 5 MCG/KG/MIN RASS IS -3,PT CONTINUE ON MORPHINE DRIPS AT 2MG/HR TOLERATED WELL, PT IS ON MODERATE SEDATION
--- NOTE | 2018-09-03 21:00 | NUR ---
PROPOFOL WAS D/C AND PT TOLERATED WELL. RASS -3 WITH MORPHINE DRIP.
--- NOTE | 2018-09-03 21:10 | NUR ---
NIGHT MEDS GIVEN TOLERATED WELL.
--- NOTE | 2018-09-03 21:35 | NUR ---
DECREASED FIO2 TO 45%, HR-106, SAO2-94, RR-18
--- NOTE | 2018-09-03 21:40 | NUR ---
RT REPORTED DECREASED FIO2 TO 45%, HR 106, SAO2 94
--- NOTE | 2018-09-03 22:21 | NUR ---
IV NS STILL RUNNING AT 100 CC/HR AND STILL HAVE ABOUT 500 CC IN THE BAG.
[2018-09-03] MEDS: ALBUTEROL SULFATE/IPRATROPIU 3 ML SOL IH PRN (22:53)
--- NOTE | 2018-09-03 23:00 | NUR ---
PEEP CHANGE TO PEEP +5 PT TOLERATED WELL.
[2018-09-04] VITALS (42 sets, daily range): BP systolic 97–143; BP diastolic 41–69
--- NOTE | 2018-09-04 01:00 | NUR ---
FIO2 DOWN TO 40 % HR 65,SPO2 93%,RESP 15 PT SLEEP,SEDATED RASS -3,DENIAL PAIN.
[2018-09-04] MEDS: NACL 0.9% 1,000 ML IV SCH ×3 (01:10→22:32)
[2018-09-04] MEDS: MORPHINE SULFATE 50 MG in NACL 0.9% 45 ML IV PRN (01:10)
--- NOTE | 2018-09-04 02:30 | NUR ---
PT SLEEP WELL. NO DISTRESS,NO S/S OF PAIN NOTED.
[2018-09-04] MEDS: LORazepam 2 MG/ML VIAL IM/IVP PRN ×2 (03:40→18:07)
--- NOTE | 2018-09-04 04:30 | NUR ---
AM CARE GIVEN,BED BATH GIVEN,F/C CARE AND ORAL CARE RENDERED. KEPT PT CLEAN AND DRY. URINE 500 YELLOW CLEAR,NO BM NOTED.
[2018-09-04] MEDS ORDERED: BISACODYL 10 MG SUPP RC SCH (06:30)
--- NOTE | 2018-09-04 06:33 | NUR ---
RESIDENT COME TO SEE PT, UP DATE PT CONDITION, MADE AWARE PROPOFOL WAS OFF ON 2100 09/03/18 AND CONTINUE ON MORPHINE DRIPS. ALSO MADE AWARE PT NO BM 3RD DAY.WILL FOLLOW FOR ANY NEW ORDER.
[2018-09-04 06:37] LABS: BASOPHILS % (AUTO) 0.2 % (0.0-2.0); HEMATOCRIT 25.5 % (36-48); HEMOGLOBIN 8.4 g/dL (12.0-16.0); LYMPHOCYTES # (AUTO) 0.5 K/uL (2.5-16.5); LYMPHOCYTES % (AUTO) 2.7 % (20.5-51.1); MEAN CORPUSCULAR HEMOGLOBIN 28 pg (27-31); MEAN CORPUSCULAR HGB CONC 33 g/dL (33-37); MEAN CORPUSCULAR VOLUME 84.7 fL (80-94); MONOCYTES # (AUTO) 1.2 K/uL (0.8-1.0); MONOCYTES % (AUTO) 6.8 % (1.7-9.3); NEUTROPHILS % (AUTO) 90.3 % (42.2-75.2); PLATELET COUNT (AUTO) 211 K/uL (140-450); RED BLOOD CELL COUNT(AUTO) 3.01 MIL/uL (4.20-5.40); WHITE BLOOD COUNT (AUTO) 17.7 K/uL (4.8-10.8)
[2018-09-04 06:38] LABS: CARBON DIOXIDE 27.4 mmol/L (21-32); CREATININE 0.9 mg/dL (0.6-1.3); POTASSIUM 4.4 mmol/L (3.5-5.1)
--- NOTE | 2018-09-04 06:53 | NUR ---
DULCOLAX SUPP 10 MG GIVEN ORDER FOR NO BM 3 DAYS
[2018-09-04] MEDS: ALBUTEROL SULFATE/IPRATROPIU 3 ML SOL IH SCH ×3 (07:08→19:38)
[2018-09-04] MEDS: BUDESONIDE 0.5 MG/2 ML NEBU INH SCH ×2 (07:09→19:38)
--- NOTE | 2018-09-04 07:42 | NUR ---
FEEDING AND MORPHINE DRIP TURNED OFF AT THIS TIME FOR CPAP TRIAL
--- NOTE | 2018-09-04 07:43 | NUR ---
PT STARTED ON CPAP WEANING TRIAL. CPAP 5 PS 10 FIO2 40%. PT IS AWAKE AND ALERT. AMBU BAG AT BEDSIDE. NO SOB OR DISTRESS NOTED. WILL CONTINUE TO MONITOR.
--- NOTE | 2018-09-04 08:00 | NUR ---
PATIENT OPENS EYES TO VOICE, OBEYS SIMPLE COMMANDS, ON MORPHINE DRIP AT 2 MGS/HR., ON BILATERAL MITTEN RESTRAINTS WITH ORDERN AND RN RELEASED BOTH AT THIS TIME. NO SIGNS OF INHURY ON BOTH HANDS AND WRISTS. SINUS RHYTHM ON MONITOR, ENDOTRACHEAL TUBE SIZE 7 AND 19 ON TEETH LEVEL, ON VENTILATOR AC 12 FIO2 40% TIDAL VOLUME 450, PEEP 5, WITH OGT PATENT ON AUSCULTATION, NO RESIDUALS, NPO EXCEPT MEDICATIONS, WITH WOLFE CATHETER CLEAR YELLOW URINE IN UROBAG NOTED, PICC LINE AT RIGHT UPPER ARM-SITE ASYMPTOMATIC NORMAL SALINE 100 ML/HR INFUSING
[2018-09-04 08:03] LABS: MAGNESIUM 2.5 mg/dL (1.8-2.4); PHOSPHORUS 3.5 mg/dL (2.5-4.9)
--- NOTE | 2018-09-04 08:27 | NUR ---
DR. SLADE HERE FOR ROUNDS
--- NOTE | 2018-09-04 08:35 | NUR ---
DR SLADE AT BEDSIDE. ABG DRAWN WILL GIVE RESULTS TO MD SLADE. PT AWAKE AND ALERT. NO SOB OR DISTRESS NOTED. WILL CONTINUE TO MONITOR.
--- NOTE | 2018-09-04 08:50 | NUR ---
PATIENT EXTUBATED AT 08:50 HOURS. ON NASAL CANNULA O2 3L/MIN. SO2 94% AND ABOVE WILL CONTINUE TO MONITOR
--- NOTE | 2018-09-04 08:50 | NUR ---
ABG RESULTS GIVEN TO MD SLADE.PT PASSED WEANING TRIAL NIF-21, VC 682, RSBI 53, SPO2 96%. PER DR SLADE EXTUBATE PATIENT. PT EXTUBATED RN AT BEDSIDE. PUT PT ON 3 L NC. SPO2 95% RR 18 BP 107/58. NO SOB OR DISTRESS NOTED. WILL CONTINUE TO MONITOR.
--- NOTE | 2018-09-04 09:00 | NUR ---
PILL MEDICATIONS WILL BE GIVEN LATE PATIENT JUS EXTUBATED. WILL DO BEDSIDE ASSESSMENT FOR SWALLOW EVALUATION PER DR. PAULINO AND SHE IS AWARE
[2018-09-04] MEDS: PANTOPRAZOLE 40 MG INJ VIAL IVP SCH (09:50)
[2018-09-04] MEDS: LACTOBACILLUS RHAMNOSUS GG 1 EACH CAP PO SCH (09:51)
[2018-09-04] MEDS: methylPREDNISolone SS 40 MG/ML VIAL IVP SCH (09:51)
[2018-09-04] MEDS: ASCORBIC ACID 500 MG TAB PO SCH (09:51)
[2018-09-04] MEDS: AMIODARONE 200 MG TAB PO SCH (09:52)
[2018-09-04] MEDS: LOSARTAN 50 MG TAB PO SCH (09:52)
[2018-09-04] MEDS: amLODIPine 5 MG TAB PO SCH (09:53)
[2018-09-04] MEDS: APIXABAN 2.5 MG TAB PO SCH ×2 (09:57→21:28)
[2018-09-04] MEDS: FERROUS SULFATE 325 MG TABEC PO SCH (09:58)
--- NOTE | 2018-09-04 10:00 | NUR ---
PATIENT ABLE TO SWALLOW CRUSHED PILLS WITH APPLE SAUCE. PATIENT SITTING AT THE EDGE OF BED. PT AT BEDSIDE. PATIENT IS TOLERATING WELL AND NO ISSUES
--- NOTE | 2018-09-04 11:38 | NUR ---
NEBULIZATION REQUESTED BY PT, COUGHING. BUT NO RESPIRATORY DISTRESS, 02- 95%
--- NOTE | 2018-09-04 14:45 | NUR ---
DR. PEREYRA AT BEDSIDE TALKING TO FAMILY REGARDING PLAN OF CARE, POSSIBLE TRANSFER TO SNF
[2018-09-04] MEDS ORDERED: BENZOCAINE/MENTHOL 1 LOZ MM PRN (14:55)
[2018-09-04] MEDS: LEVOFLOXACIN 750 MG/D5W PREMIX 150 ML IV SCH (15:32)
--- NOTE | 2018-09-04 16:13 | NUR ---
LEFT HAND GAUGE 22 IV LINE DISCONTINUED IT IS AN EXTRA LINE, CANNULA INTACT UPON REMOVAL, SITE ASYMPTOMATIC, PRESSURE DRESSING ASSIGNED Addendum: 09/04/18 at 1615 by Rocio Kinney RN PRESSURE DRESSING "APPLIED"
[2018-09-04] MEDS: BENZOCAINE/MENTHOL 1 LOZ MM PRN (16:23)
--- NOTE | 2018-09-04 18:30 | NUR ---
PATIENT TRANSFERRED TO TELEMETRY BY BED AND REPORT GIVEN TO RECEIVING RN HETAL. PATIENT ON OXYMIZER O2 5L/MIN SO2 95%, HR 80 AND SINUS, BP 118/70. PATIENT TRANSFERRED WITH HER BELONGINGS INCLUDING DENTURES
--- NOTE | 2018-09-04 18:45 | NUR ---
PT ARRIVED FROM ICU, REPORT RECIEVED FROM ICU NURSE, PT AOX4, RESP EVEN UNLABORED ON 5L OXYMIZER, HEAD OF PHYSICS IN PLACE, PT ORIENTED TO ROOM AND UNIT, CALL HART WITHIN REACH, PT DENIES ANY PAIN OR DISCOMFORT, IVF INFUSING TO RIGHT UPPER PICC PURPLE PORT, SITE WNL, UNABLE TO FLUSH RED PORT WITH RESISTANCE.
--- NOTE | 2018-09-04 19:29 | NUR ---
REPORT GIVEN TO CRAYON SORTING MACHINE FEEDER NURSE, PT IN STABLE CONDITION.
--- NOTE | 2018-09-04 19:30 | NUR ---
RECIEVED BEDSIDE REPORT FROM AM NURSE, PT AOX4, RESP EVEN UNLABORED ON 5L OXYMIZER, PT ON TELE. PT ABLE TO FOLLOW COMMANDS, ABLE TO VERBALIZE NEEDS. W/ IVF NS AT 100 ML/HR ON RIGHT UPPER ARM PICC LINE-DBL LUMEN ON PURPLE PORT, RED PORT UNABLE TO FLUSH W/ RESISTANCE. WITH RIGHT HAND G 22, IV SITE- SALINE LOCK. W/ WOLFE CATHETER ATTACHED TO BAG, DRAINING STRAW COLORED URINE , CALL HART WITHIN REACH, PT DENIES ANY PAIN OR DISCOMFORT. WILL CONTINUE TO MONITOR
--- NOTE | 2018-09-04 19:32 | NUR ---
PT IS ON 5 LITERS OXYMIZER. PT TOLERATING WELL 02 SAT AT 95%
--- NOTE | 2018-09-04 19:38 | NUR ---
COMPLETED HHN TX WITH NO INCIDENT. PATIENT IS AWAKE, ALERT AND RESPONSIVE. PATIENT HAS A STRONG END EFFECTIVE COUGH. PATIENT COMFORTABLE ON 5L/M OXYMIZER, WILL MONITOR TO DECREASE.
[2018-09-04] MEDS: guaiFENesin DM 200/20 MG-10 ML 10 ML UDC PO PRN (21:29)
--- NOTE | 2018-09-04 21:29 | NUR ---
ABLE TO EXPECTORATE SPUTUM STILL; STILL W/ BLOOD TINGE, MINIMAL IN AMOUNT BLOOD. PER HE IS AWARE, AND IT IS BEC. OF PNA. WILL GIVE HER COUGH MEDS
[2018-09-04] MEDS: ALBUTEROL SULFATE/IPRATROPIU 3 ML SOL IH PRN (23:42)
[2018-09-05] VITALS: BP 120/64
[2018-09-05] MEDS: LORazepam 2 MG/ML VIAL IM/IVP PRN ×3 (00:54→21:26)
--- NOTE | 2018-09-05 00:54 | NUR ---
PT C/O CANNOT SLEEP, HEART IS RACING. EXPLAINED TO HER THE SIDE EFFECTS OF BREATHING TX. PT ANXIOUS WILL GIVE ATIVAN ORDERED PRN
[2018-09-05] MEDS: BENZOCAINE/MENTHOL 1 LOZ MM PRN ×2 (01:36→21:26)
--- NOTE | 2018-09-05 01:36 | NUR ---
PT C/O THAT HER COUGH IS BAD. GIVEN CEPacol LOZENGES PRN
[2018-09-05 04:00] VITALS: BP 126/65
--- NOTE | 2018-09-05 05:54 | NUR ---
PT CLEANED, CHANGED AND F/C DRAINED. NO BM NOTED. PASSED OUT GAS. PT HAS STILL DIFFICULTY SLEEPING "HEART RACING" VERBALIZED BY PATIENT
[2018-09-05] MEDS: ALBUTEROL SULFATE/IPRATROPIU 3 ML SOL IH SCH ×3 (07:06→19:32)
[2018-09-05] MEDS: BUDESONIDE 0.5 MG/2 ML NEBU INH SCH ×2 (07:07→19:33)
--- NOTE | 2018-09-05 07:20 | NUR ---
RECEIVED BEDSIDE REPORT FROM LENS GRINDER AND POLISHER NURSE. AOX4. RESPIRATION IS ASYMMETRICAL AND UNLABORED ON 5L OXYMIZER. INTERMITTENT COUGH NOTED. DENIES PAIN. ABLE TO FOLLOW COMMANDS AND ABLE TO VERBALIZE NEEDS. LARON PICC LINE WITH DOUBLE LUMEN, RESISTANCE FELT WHEN FLUSHING. R HAND 22G, INTACT AND PATENT, INFUSING PER MD ORDER. SKIN INTACT, DRY AND CLEAN. WOLFE CATHETER ATTACHED AND DRAINING CAROLYN URINE. DISCUSSED PLAN OF CARE WITH PATIENT, AND PATIENT VERBALIZED UNDERSTANDING. BED IN LOW POSITION AND CALL LIGHT WITHIN REACH.
[2018-09-05 07:32] LABS: BASOPHILS % (AUTO) 0.2 % (0.0-2.0); EOSINOPHILS # (AUTO) 0.1 K/uL (0-0.4); EOSINOPHILS % (AUTO) 0.4 % (0.0-4.0); HEMOGLOBIN 9.1 g/dL (12.0-16.0); LYMPHOCYTES # (AUTO) 0.8 K/uL (2.5-16.5); LYMPHOCYTES % (AUTO) 3.9 % (20.5-51.1); MEAN CORPUSCULAR HEMOGLOBIN 28 pg (27-31); MEAN CORPUSCULAR HGB CONC 33 g/dL (33-37); MEAN CORPUSCULAR VOLUME 84.9 fL (80-94); MONOCYTES # (AUTO) 1.5 K/uL (0.8-1.0); MONOCYTES % (AUTO) 7.2 % (1.7-9.3); NEUTROPHILS % (AUTO) 88.3 % (42.2-75.2); PLATELET COUNT (AUTO) 278 K/uL (140-450); RED CELL DISTRIBUTION WIDTH 15.3 % (11.6-13.7); WHITE BLOOD COUNT (AUTO) 21.5 K/uL (4.8-10.8)
[2018-09-05 07:45] LABS: ANION GAP 11.4 (8-16); CARBON DIOXIDE 26.4 mmol/L (21-32); CREATININE 0.9 mg/dL (0.6-1.3); POTASSIUM 3.8 mmol/L (3.5-5.1)
[2018-09-05 08:00] VITALS: BP 125/66
[2018-09-05 08:04] LABS: MAGNESIUM 2.3 mg/dL (1.8-2.4); PHOSPHORUS 2.5 mg/dL (2.5-4.9)
--- NOTE | 2018-09-05 08:30 | NUR ---
DR PEREYRA IS TALKING TO PATIENT AT BEDSIDE. NOTIFIED DR PEREYRA THAT RESISTANCE FELT WHEN FLUSHING BOTH LUMEN OF PICC LINE AND DR PEREYRA IS AWARE.
[2018-09-05] MEDS: AMIODARONE 200 MG TAB PO SCH (08:39)
[2018-09-05] MEDS: ASCORBIC ACID 500 MG TAB PO SCH (08:39)
[2018-09-05] MEDS: LOSARTAN 50 MG TAB PO SCH (08:40)
[2018-09-05] MEDS: amLODIPine 5 MG TAB PO SCH (08:40)
[2018-09-05] MEDS: FERROUS SULFATE 325 MG TABEC PO SCH (08:41)
[2018-09-05] MEDS: LACTOBACILLUS RHAMNOSUS GG 1 EACH CAP PO SCH (08:41)
[2018-09-05] MEDS: PANTOPRAZOLE 40 MG INJ VIAL IVP SCH (08:43)
[2018-09-05] MEDS: APIXABAN 2.5 MG TAB PO SCH ×2 (08:43→21:22)
--- NOTE | 2018-09-05 10:30 | NUR ---
PATIENT IS SITTING UP ON A CHAIR AND PRACTICING INCENTIVE SPIROMETER. MINIMAL COUGHS NOTE. DENIES PAIN AND SOB.
--- NOTE | 2018-09-05 10:37 | NUR ---
PATIENT IS AMBULATING WITH PHYSICAL THERAPIST.
--- NOTE | 2018-09-05 11:00 | NUR ---
unable to tritrate 02 at this time pt desaturates below .77 left on 5lpm oxymizer
--- NOTE | 2018-09-05 11:52 | NUR ---
PATIENT COMPLAINED THAT SHE DOES NOT LIKE HER LUNCH AND THE HERB TASTE ON HER FISH. CALLED [facility] AND PER [facility], THEY WILL SEND ANOTHER FOOD TRAY WITH [employer]. PATIENT SAID SHE IS OK WITH [employer]ICKEN.
[2018-09-05 12:00] VITALS: BP 131/56
[2018-09-05] MEDS: guaiFENesin DM 200/20 MG-10 ML 10 ML UDC PO PRN ×2 (12:09→21:29)
--- NOTE | 2018-09-05 12:10 | NUR ---
PT C/O THAT SHE COUGHS TOO MUCH AND SHE FEELS TIRED FROM IT. CHECKED SPO2 AND RECEIVED 90%. ADMINISTERED PRN ROBITUSSIN PER MD ORDER.
--- NOTE | 2018-09-05 12:21 | NUR ---
RECEIVED NEW FOOD TRAY. PATIENT IS SITTING UP ON BED AND EATING LUNCH. NO SIGNS OF DISTRESS NOTED.
[2018-09-05] MEDS ORDERED: FUROSEMIDE 20 MG/2 ML VIAL IVP SCH (13:00)
[2018-09-05 14:12] LABS: TRANSFERRIN 195 mg/dL (200-370)
--- NOTE | 2018-09-05 14:21 | NUR ---
DAUGHTER RAUL IS AT BEDSIDE AND TALKING TO PATIENT. DENIES SOB. NO SIGNS OF DISTRESS NOTED.
--- NOTE | 2018-09-05 15:25 | NUR ---
IV ON R HAND INFILTRATED. D/C IV, CANNULA INTACT, NO BLEEDING AT IV SITE. PATIENT TOLERATED WELL.
--- NOTE | 2018-09-05 15:45 | NUR ---
DR SLADE IS TALKING TO PATIENT AND DAUGHTER AT BEDSIDE.
[2018-09-05] MEDS: LEVOFLOXACIN 750 MG/D5W PREMIX 150 ML IV SCH (15:48)
[2018-09-05 16:00] VITALS: BP 109/51
--- NOTE | 2018-09-05 16:01 | NUR ---
PATIENT STATED THAT SHE IS FEELING RESTLESS AND ANXIOUS. ADMINISTERED PRN LORAZEPAM PER MD ORDER.
--- NOTE | 2018-09-05 18:34 | NUR ---
COLLECTED URINE SPECIMEN AND DELIVERED TO LAB.
--- NOTE | 2018-09-05 18:40 | NUR ---
ASSISTED PATIENT TO TRANSFER FROM BED TO CHAIR. NO SIGNS OF DISTRESS NOTED. PATIENT TOLERATED WELL.
[2018-09-05 18:54] LABS: APPEARANCE,URINE CLEAR (CLEAR); BILIRUBIN,URINE NEGATIVE (NEGATIVE); BLOOD, URINE 3+ (NEGATIVE); COLOR,URINE YELLOW (YELLOW); LEUKOCYTE ESTERASE ,URINE NEGATIVE (NEGATIVE); NITRITE, URINE NEGATIVE (NEGATIVE); UGLUCOSE NEGATIVE (NEGATIVE)
[2018-09-05 19:05] LABS: RBC,URINE 20-50 /HPF (0-5); WBC,URINE 0-5 /HPF (0-5)
--- NOTE | 2018-09-05 19:30 | NUR ---
ENDORSED PATIENT AT BEDSIDE TO ASSISTANT PROFESSOR OF BIOCHEMISTRY NURSE FOR CONTINUITY OF CARE. PATIENT IS IN STABLE CONDITION.
--- NOTE | 2018-09-05 19:48 | NUR ---
RECEIVED PATIENT ON 5L OXYMIZER, PULSE OX SAT 92%. SCHEDULED BREATHING TREATMENTS ADMINISTERED. TOLERATED TREATMENTS WELL, NO ADVERSE SIDE EFFECTS. ORAL RINSE DONE POST TX. PLACED PATIENT BACK ON 5L OXYMIZER POST TX. NO ACUTE RESPIRATORY DISTRESS NOTED AT THIS TIME. AMBU BAG AT BEDSIDE. WILL CONTINUE TO MONITOR.
[2018-09-05 20:00] VITALS: BP 122/54
[2018-09-05] MEDS ORDERED: diphenhydrAMINE 2% 30 GM TUBE TP PRN (22:55)
--- NOTE | 2018-09-05 23:17 | NUR ---
INFORMED THAT PT REFUSED TO HAVE F/C TAKEN TONIGHT, SHE SAID SHE DOES NOT WANT TO GO TO BATHROOM FROM TIME TO TIME AT NIGHT. SHE HAS NOT SLEPT A WINK FOR 2 DAYS. SHE AGREED TO D/C AT 4AM IN THE MORNING. DR. MOE AGREED.
--- NOTE | 2018-09-05 23:40 | NUR ---
BOYFRIEND OF PT CALLED FROM THE [facility]. HE SAID HE WILL LEAVE THE PASTE FOR THE PATIENT'S DENTURES AT THE [facility]. GOT A CALL FROM [facility] LESLY AND SHE SAID BF WAS NOT ABLE TO LEAVE THE PASTE AND NO PASTE WAS LEFT IN THE COUNTER FOR THE PT. BF TALKED TO PATIENT OVER AT THE PHONE JUST NOW.
--- NOTE | 2018-09-06 01:30 | NUR ---
CALLED TO BEDSIDE BY RN DUE TO PATIENT DESATURATING. PULSE OX SAT 31%. PATIENT PRESENTS WITH SHALLOW/INCREASED WORK OF BREATHING. PLACED PATIENT ON NONREBREATHER. DR. MOE CALLED. DR. MOE AT BEDSIDE. ABG DRAWN WITHOUT INCIDENT. PATIENT PLACED ON BIPAP. WILL CONTINUE TO MONITOR CLOSELY.
--- NOTE | 2018-09-06 01:30 | NUR ---
PT BREATHING HARD.ACUTE RESPIRATORY DISTRESS NOTED. PT VS ABNORMAL - VITAL SIGNS : 161/68/ TACHY AT 105. TEMP 97.4 ; 02 SAT 31% RR- 46; DR. MOE AWARE. ORDERED LASIX. WILL CARRY OUT ORDER.
[2018-09-06] MEDS ORDERED: FUROSEMIDE 40 MG/4 ML VIAL IVP SCH (01:45)
--- NOTE | 2018-09-06 02:00 | NUR ---
RT AT BEDSIDE SETTING UP BIPAP.
[2018-09-06] MEDS: ALBUTEROL SULFATE/IPRATROPIU 3 ML SOL IH PRN (02:38)
--- NOTE | 2018-09-06 03:11 | NUR ---
PRN BREATHING TX ADMINISTERED INLINE WITH NIPPV DUE TO PATIENT EXPERIENCING SHORTNESS OF BREATH. PATIENT STATES TO BE FEELING BETTER POST TX. SKIN PROTECTIVE GEL BARRIER IN PLACE. SKIN INTACT/NO REDNESS. BIPAP CHECK DONE. BIPAP ALARMS ON AND AUDIBLE. PATIENT TOLERATING BIPAP WELL. CONTINUOUS PULSE OX ON AND FUNCTIONING; ALARMS ON AND AUDIBLE. WILL CONTINUE TO MONITOR.
[2018-09-06 04:00] VITALS: BP 108/49
--- NOTE | 2018-09-06 06:38 | NUR ---
CHECKED ON PT, PT SLEEPING, STILL ON BIPAP
--- NOTE | 2018-09-06 06:38 | NUR ---
PATIENT WAS TURN Q2 BY SELF AND ASSISTED BY 1 PERSON.
--- NOTE | 2018-09-06 06:39 | NUR ---
WILL ENDORSE PATIENT TO NEXT AM NURSE. PT ON BIPAP, NEED TO BE MONITORED. ABG PCO2 54.9 LOW; OXYHGB= 84.4. DR. ROSS
[2018-09-06 07:14] LABS: BASOPHILS % (AUTO) 0.1 % (0.0-2.0); EOSINOPHILS % (AUTO) 0.1 % (0.0-4.0); HEMATOCRIT 26.3 % (36-48); HEMOGLOBIN 8.6 g/dL (12.0-16.0); LYMPHOCYTES # (AUTO) 0.8 K/uL (2.5-16.5); MEAN CORPUSCULAR HEMOGLOBIN 28 pg (27-31); MEAN CORPUSCULAR HGB CONC 33 g/dL (33-37); MEAN CORPUSCULAR VOLUME 84.8 fL (80-94); MONOCYTES # (AUTO) 1.1 K/uL (0.8-1.0); MONOCYTES % (AUTO) 5.3 % (1.7-9.3); NEUTROPHILS % (AUTO) 90.5 % (42.2-75.2); PLATELET COUNT (AUTO) 233 K/uL (140-450); RED CELL DISTRIBUTION WIDTH 15.8 % (11.6-13.7)
--- NOTE | 2018-09-06 07:15 | NUR ---
RECEIVED BEDSIDE REPORT FROM MANAGER SCIENCE NURSE. PATIENT IS RESTING ON BED. AOX4. RESPIRATION IS ASYMMETRICAL AND UNLABORED ON BIPAP, SPO2 93%. SKIN INTACT BENEATH THE EDGES OF THE MASK AND THE BRIDGE OF NOSE AND MOUTH, NO REDNESS NOTED. DENIES PAIN. ABLE TO FOLLOW COMMANDS AND ABLE TO VERBALIZE NEEDS. LARON PICC LINE WITH DOUBLE LUMEN, PATENT AND INTACT. SKIN INTACT, DRY AND CLEAN. WOLFE CATHETER ATTACHED AND DRAINING CAROLYN URINE. DISCUSSED PLAN OF CARE WITH PATIENT, AND PATIENT VERBALIZED UNDERSTANDING. SAFETY MEASURES IN PLACE. BED IN LOW POSITION AND CALL LIGHT WITHIN REACH.
[2018-09-06 07:41] LABS: ANION GAP 11.8 (8-16); CARBON DIOXIDE 27.3 mmol/L (21-32); CREATININE 0.9 mg/dL (0.6-1.3); POTASSIUM 4.1 mmol/L (3.5-5.1)
[2018-09-06 07:49] LABS: MAGNESIUM 1.7 mg/dL (1.8-2.4); PHOSPHORUS 3.4 mg/dL (2.5-4.9)
[2018-09-06] MEDS: ALBUTEROL SULFATE/IPRATROPIU 3 ML SOL IH SCH ×3 (07:50→20:29)
[2018-09-06] MEDS: BUDESONIDE 0.5 MG/2 ML NEBU INH SCH ×2 (07:50→20:30)
[2018-09-06 08:00] VITALS: BP 130/69
[2018-09-06] MEDS: LACTOBACILLUS RHAMNOSUS GG 1 EACH CAP PO SCH (08:39)
[2018-09-06] MEDS: FERROUS SULFATE 325 MG TABEC PO SCH (08:40)
[2018-09-06] MEDS: AMIODARONE 200 MG TAB PO SCH (08:40)
[2018-09-06] MEDS: amLODIPine 5 MG TAB PO SCH (08:40)
[2018-09-06] MEDS: ASCORBIC ACID 500 MG TAB PO SCH (08:40)
[2018-09-06] MEDS: PANTOPRAZOLE 40 MG INJ VIAL IVP SCH (08:41)
[2018-09-06] MEDS: LOSARTAN 50 MG TAB PO SCH (08:41)
[2018-09-06] MEDS: APIXABAN 2.5 MG TAB PO SCH ×2 (08:42→20:53)
--- NOTE | 2018-09-06 08:59 | NUR ---
PT BHUPENDRA BEING OFF BIPAP FOR 45 MINS WHILE SHE ATE AND TOOK MEDS. WHILE OFF BIPAP PT WAS PLACED ON OXIMETER 5LPM WITH SPO2 88-93%. PT FELT TIRED AND SOB. PLACED PT BACK ON BIPAP AND WILL TRY AGAIN AT LUNCH TIME. RN AWARE AND PRESENT.
[2018-09-06] MEDS ORDERED: MAG SULF 2000 MG/WATER PREMIX 50 ML IV SCH (09:00)
--- NOTE | 2018-09-06 09:05 | NUR ---
ADMINISTERED MG PER MD ORDER, PATIENT'S MG LEVEL IS 1.7 FROM AM LAB. PATIENT IS ON BIPAP 02 50%, SPO2 IS 100%. DENIES PAIN AND SOB. PATIENT IS RESTING ON BED. NO SIGNS OF DISTRESS NOTED.
[2018-09-06] MEDS: NACL 0.9% 1,000 ML IV SCH (10:34)
--- NOTE | 2018-09-06 11:03 | NUR ---
DR ANGEL Zambrano IS ASSESSING AND TALKING TO PATIENT AT BEDSIDE.
[2018-09-06 12:00] VITALS: BP 119/67
[2018-09-06] MEDS ORDERED: FUROSEMIDE 20 MG/2 ML VIAL IVP SCH ×2 (13:00→21:00)
[2018-09-06] MEDS: methylPREDNISolone SS 40 MG/ML VIAL IVP SCH ×2 (13:05→20:51)
--- NOTE | 2018-09-06 13:12 | NUR ---
DR PEREYRA IS TALKING TO PATIENT AND PATIENT'S FAMILY AT BEDSIDE. SKIN INTACT BENEATH THE EDGES OF THE MASK, BRIDGE OF NOSE, MOUTH AND CHEEKS.
--- NOTE | 2018-09-06 13:23 | NUR ---
PLEASE REFER TO NUTRITION PROGRESS NOTE UNDER CARE ACTIVITY FOR ESTIMATED NUTRITION NEEDS. RD RECOMMENDATIONS: 1. RECOMMEND MECHANICAL SOFT CHOPPED DIET. 2.RECOMMEND ADDING ENSURE ENLIVE TID DUE TO POOR PO INTAKE. 3. RD WILL F/U 3-5 DAYS; MODERATE RISK. GROVER LU, RD
[2018-09-06] MEDS ORDERED: BISACODYL 10 MG SUPP RC SCH (13:32)
--- NOTE | 2018-09-06 15:16 | NUR ---
PATIENT REFUSED BISACODYL AND STATED "I DONT WANT TO DO IT. AND I AM FEELING TIRED." NOTIFIED DR PEREYRA.
[2018-09-06] MEDS: LEVOFLOXACIN 750 MG/D5W PREMIX 150 ML IV SCH (15:23)
--- NOTE | 2018-09-06 15:28 | NUR ---
PATIENT'S BOYFRIEND ABEL IS AT BEDSIDE. PATIENT IS RESTING ON BED. DENIES PAIN AND SOB. NO SIGNS OF DISTRESS NOTED.
[2018-09-06 16:00] VITALS: BP 117/60
--- NOTE | 2018-09-06 16:25 | NUR ---
PATIENT HAS ONE BM. COLLECTED OCCULT BLOOD AND DELIVERED TO LAB.
--- NOTE | 2018-09-06 18:17 | NUR ---
PATIENT IS SITTING UP ON BED AND WATCHING TV. BOYFRIEND ABEL IS AT BEDSIDE. DENIES PAIN AND SOB. NO SIGNS OF DISTRESS NOTED.
--- NOTE | 2018-09-06 18:48 | NUR ---
PATIENT IS SITTING ON BED AND TALKING TO DAUGHTER RAUL AND BOYFRIEND ABEL. DENIES PAIN AND SOB. SPO2 IS 98% AT THIS TIME. NO SIGNS OF DISTRESS NOTED.
--- NOTE | 2018-09-06 19:05 | NUR ---
REMOVED PATIENT FROM BIPAP TO MASK FOR EVENING MEAL TRAY PLACED ON SUPPLEMENTAL OXYGENT AT 5 LPM VIA OXYMIZER
--- NOTE | 2018-09-06 19:25 | NUR ---
ENDORSED PATIENT AT BEDSIDE TO POTTERY KILN BUILDER NURSE FOR CONTINUITY OF CARE. PATIENT IS IN STABLE CONDITION.
--- NOTE | 2018-09-06 19:30 | NUR ---
RECEIVED BEDSIDE REPORT FROM DAY SHIFT NURSE FOR CONTINUITY OF CARE. PATIENT AWAKE, ALERT, RESPIRATION EVEN UNLABORED ON OXYMIZER 5L. SATING 90%. DENIES PAIN. ABLE TO VERBALIZE NEEDS. SKIN IS WARM AND DRY. LARON PICC LINE WITH DOUBLE LUMEN NOTED PATENT AND INTACT. WOLFE CATHETER DRAINING YELLOW URINE. FAMILY AT BEDSIDE. PLAN OF CARE WAS DISCUSSED. ALL SAFETY MEASURES IN PLACE. BED IS AT LOW POSITION. CALL LIGHT WITHIN REACH AND VERBALIZES ITS USE.
[2018-09-06 20:00] VITALS: BP 131/58
--- NOTE | 2018-09-06 20:30 | NUR ---
REMOVED FROM SUPPLEMENTAL OXYGEN AT 5 LPM VIA OXYMIZER PLACED BACK ON BIPAP TO MASK WITH SAME SETTINGS NOTED BIPAP PLUGGED INTO RED OUTLET TOLERATING WELL WITHOUT ADVERSE REACTIONS NOTED TO A MEDIUM FACIAL MASK SECURED WITH HEAD STRAP MASIMO RADICAL-7 CONTINUOS PULES OXIMETER AT BEDSIDE ON AND FUNCTIONING WELL LOW SATURATION ALARM SET AT 90% DAUGHTER AND MALE RIP AND GROOVE MACHINE OPERATOR IN ROOM
[2018-09-06] MEDS: BUMETANIDE 1 MG/4 ML VIAL IV SCH (20:51)
[2018-09-06] MEDS: CARVEDILOL 6.25 MG TAB PO SCH (20:52)
--- NOTE | 2018-09-06 21:00 | NUR ---
ALL SCHEDULE MEDS WERE GIVEN PER ORDER. NO ASE NOTED. WILL CONTINUE TO MONITOR
--- NOTE | 2018-09-06 21:10 | NUR ---
PATIENT FEELING RESTLESS AND ASKED FOR ATIVAN. PRN ATIVAN ADMINISTERED PER ORDER. ADMINISTERED 0.5MG ATIVAN. PATIENT TOLERATED WELL.
[2018-09-06] MEDS: LORazepam 2 MG/ML VIAL IVP PRN (21:11)
--- NOTE | 2018-09-06 23:42 | NUR ---
RESTING COMFORTABLY NO EVIDENCE OF PULMONARY DISTRESS NOTED GOOD CHEST RISE AND AERATION THROUGHOUT LUNG MCBRIDE Addendum: 09/07/18 at 0023 by Yang Amaral RT SATURATION 98% ON FIO2 OF 45% TITRATE FIO2 TO 40% IRVING/MAYRA NOTIFIED
--- NOTE | 2018-09-06 23:54 | NUR ---
CHECKED PATIENT. VITALS WERE TAKEN. SPO2 98-99% ON FIO2 40. NO DISTRESS NOTED AT THIS TIME. WILL CONTINUE TO MONITOR.
[2018-09-07] VITALS: BP 131/67
--- NOTE | 2018-09-07 01:32 | NUR ---
PATIENT PRESENTING WITH COUGHING EPISODE SATURATION DECLINING TO 87% INCREASED FIO2 TO 50% MACHINE OPERATOR PICKER TO MONITOR
--- NOTE | 2018-09-07 01:49 | NUR ---
CHECKED PATIENT. PATIENT SLEEPING RESPIRATION EVEN UNLABORED ON BIPAP. NO DISTRESS NOTED. WILL CONTINUE TO MONITOR.
--- NOTE | 2018-09-07 03:55 | NUR ---
RESTING WELL NO SOB NOTED AT THIS TIME GOOD CHEST RISE Addendum: 09/07/18 at 0404 by Yang Amaral RT SATURATION 97% ON FIO2 OF 50% TITRATED FIO2 TO 45% BALA ROSS
[2018-09-07 04:00] VITALS: BP 153/78
--- NOTE | 2018-09-07 04:00 | NUR ---
VITALS WERE TAKEN. SPO2 96% ON FIO2 45. NO DISTRESS NOTED. WILL CONTINUE TO MONITOR.
[2018-09-07] MEDS: methylPREDNISolone SS 40 MG/ML VIAL IVP SCH ×3 (04:13→20:10)
[2018-09-07] MEDS: NACL 0.9% 1,000 ML IV SCH (04:14)
--- NOTE | 2018-09-07 05:50 | NUR ---
STABLE C/O PAIN RN AT BEDSIDE GOOD CHEST RISE SATURATION 97% ON FIO2 OF 45% TITRATED FIO2 TO 40%
[2018-09-07] MEDS: LORazepam 2 MG/ML VIAL IVP PRN ×3 (05:57→17:24)
--- NOTE | 2018-09-07 05:57 | NUR ---
PATIENT HAVING AN ANXIETY. PRN ATIVAN ADMINISTERED PER ORDER. WILL CONTINUE TO MONITOR.
[2018-09-07 07:19] LABS: BASOPHILS % (AUTO) 0.1 % (0.0-2.0); HEMATOCRIT 25.9 % (36-48); HEMOGLOBIN 8.5 g/dL (12.0-16.0); LYMPHOCYTES # (AUTO) 0.6 K/uL (2.5-16.5); LYMPHOCYTES % (AUTO) 2.6 % (20.5-51.1); MEAN CORPUSCULAR HEMOGLOBIN 28 pg (27-31); MEAN CORPUSCULAR HGB CONC 33 g/dL (33-37); MEAN CORPUSCULAR VOLUME 84.6 fL (80-94); MONOCYTES # (AUTO) 0.5 K/uL (0.8-1.0); NEUTROPHILS # (AUTO) 21.7 K/uL (1.8-7.7); NEUTROPHILS % (AUTO) 95.3 % (42.2-75.2); PLATELET COUNT (AUTO) 245 K/uL (140-450); RED BLOOD CELL COUNT(AUTO) 3.06 MIL/uL (4.20-5.40); RED CELL DISTRIBUTION WIDTH 15.8 % (11.6-13.7); WHITE BLOOD COUNT (AUTO) 22.8 K/uL (4.8-10.8)
--- NOTE | 2018-09-07 07:20 | NUR ---
RECEIVED PT REPORT FROM CERTIFIED COURT/MEDICAL INTERPRETER NURSE. PT ASLEEP, WEARING A BIPAP. NO S/S OF ACUTE DISTRESS. SKIN IS INTACT. MECHAICAL SOFT DIET. RUE DOUBLE LUMEN PICC LINE NOTED, INFUSING NS 50 ML/HR. FALL PRECAUTIONS IN PLACE. CALL LIGHT WITHIN REACH. WILL CONTINUE TO MONITOR. Addendum: 09/07/18 at 0841 by Jasmina Pretty RN PT HAS A WOLFE CATHETER
--- NOTE | 2018-09-07 07:23 | NUR ---
ENDORSED PATIENT TO DAY SHIFT NURSE FOR CONTINUITY OF CARE. PATIENT STABLE AT THIS TIME
[2018-09-07] MEDS: ALBUTEROL SULFATE/IPRATROPIU 3 ML SOL IH SCH ×3 (07:45→19:18)
[2018-09-07] MEDS: BUDESONIDE 0.5 MG/2 ML NEBU INH SCH ×2 (07:46→19:19)
[2018-09-07 07:49] LABS: PHOSPHORUS 3.1 mg/dL (2.5-4.9)
[2018-09-07 08:00] VITALS: BP 144/75
[2018-09-07 09:48] LABS: ANION GAP 13.5 (8-16); CARBON DIOXIDE 26.5 mmol/L (21-32); CREATININE 0.8 mg/dL (0.6-1.3)
--- NOTE | 2018-09-07 10:30 | NUR ---
PT SEEN BY PULMONARY DOCTOR
[2018-09-07] MEDS: LOSARTAN 50 MG TAB PO SCH (10:31)
[2018-09-07] MEDS: ASCORBIC ACID 500 MG TAB PO SCH (10:31)
[2018-09-07] MEDS: FERROUS SULFATE 325 MG TABEC PO SCH (10:32)
[2018-09-07] MEDS: APIXABAN 2.5 MG TAB PO SCH ×2 (10:32→20:13)
[2018-09-07] MEDS: LACTOBACILLUS RHAMNOSUS GG 1 EACH CAP PO SCH (10:32)
[2018-09-07] MEDS: CARVEDILOL 6.25 MG TAB PO SCH ×2 (10:33→20:11)
[2018-09-07] MEDS: amLODIPine 5 MG TAB PO SCH (10:34)
[2018-09-07] MEDS: PANTOPRAZOLE 40 MG INJ VIAL IVP SCH (10:35)
[2018-09-07] MEDS: BUMETANIDE 1 MG/4 ML VIAL IV SCH ×2 (10:37→20:11)
--- NOTE | 2018-09-07 11:14 | NUR ---
PT ON OXIMIZER SINCE 1038 SPO2 96-99%. WILL CONTINUE TO MONITOR. RN AWARE. PT COMFORTABLE AT THIS TIME. NO SOB NOTED AT THIS TIME.
--- NOTE | 2018-09-07 11:36 | NUR ---
PT WAS ABLE TO MAINTAIN 02 OF 97% FOR AN HOUR WITH JUST THE OXIMIZER ON 8 L.
[2018-09-07 12:00] VITALS: BP 119/71
--- NOTE | 2018-09-07 14:20 | NUR ---
PT HAS BEEN HAVING DIARRHEA X 3 TODAY. STOOL SAMPLE COLLECTED SENT TO LAB ORDERED.
[2018-09-07] MEDS: LEVOFLOXACIN 750 MG/D5W PREMIX 150 ML IV SCH (15:28)
--- NOTE | 2018-09-07 15:54 | NUR ---
PT OFF BIPAP TO EAT. PT BHUPENDRA WELL. SPO2 95-98% Addendum: 09/07/18 at 1611 by Cailin Vo RT PT PLACED ON OXIMITER WHILE EATING. SPO2 95-98% WILL CONTINUE TO MONITOR. RN AWARE.
[2018-09-07 16:00] VITALS: BP 132/68
--- NOTE | 2018-09-07 16:52 | NUR ---
PT PLACED BACK ON BIPAP DUE TO INCREASE WORK OF BREATHING. PT FELT TRIED BUT TOLERATED OXIMIZER WELL. WILL CONTINUE TO MONITOR. RN AWARE.
--- NOTE | 2018-09-07 18:29 | NUR ---
PT'S SIGNIFICANT OTHER VISITING AT BEDSIDE. NO S/S OF ACUTE DISTRESS. PT CURRENTLY OFF OF BIPAP, AND ON OXIMIZER, MAINTAINING O2 SAT 95-95%. CALL LIGHT IS WITHIN REACH.
--- NOTE | 2018-09-07 19:20 | NUR ---
PT ENDORSED TO METAL TANK BUILDER NURSE IN STABLE CONDITION.
--- NOTE | 2018-09-07 19:21 | NUR ---
RECEIVED REPORT FROM DAY SHIFT RN SEGUNDO FOR CONTINUITY OF CARE. PT IS A/OX4, ON 8L O2 VIA OXIMIZER AND BIPAP ON STANDBY. PT ABLE TO MAKE NEEDS KNOWN, AND ABLE TO FOLLOW COMMANDS. PT BEDBOUND, FALL PRECAUTIONS IN PLACE. PT SKIN IS INTACT. PT HAS A DOUBLE LUMEN PICC TO RIGHT UPPER ARM, ASYMPTOMATIC AND INTACT. DISCUSSED PLAN OF CARE WITH PT, PT VERBALIZED UNDERSTANDING. VITAL SIGNS WITHIN NORMAL LIMITS. PT STABLE, DENIES PAIN, NO SIGNS OF DISTRESS NOTED AT THIS TIME. PT POSITIONED FOR COMFORT. BED IN LOWEST POSITION, BED ALARM ON. WILL CONTINUE TO MONITOR.
[2018-09-07 20:00] VITALS: BP 132/62
--- NOTE | 2018-09-07 20:19 | NUR ---
ADMINISTERED SCHEDULED MEDICATIONS, PT TOLERATED WELL. PT DESCRIBED PAIN 8/10 TO NECK AND BACK SO MORPHINE WAS OFFERED, BUT PT REFUSED AND ASKED FOR TYLENOL. TYLENOL WAS GIVEN.
[2018-09-08] VITALS (7 sets, daily range): BP systolic 132–162; BP diastolic 66–92
--- NOTE | 2018-09-08 | NUR ---
VITAL SIGNS WITHIN NORMAL LIMITS. PT STABLE, DENIES PAIN, NO SIGNS OF DISTRESS NOTED AT THIS TIME. PT POSITIONED FOR COMFORT. BED IN LOWEST POSITION, BED ALARM ON. WILL CONTINUE TO MONITOR.
[2018-09-08] MEDS: LORazepam 2 MG/ML VIAL IVP PRN ×4 (00:34→20:43)
--- NOTE | 2018-09-08 00:35 | NUR ---
PT REPORTS FEELING ANXIOUS. ADMINISTERED ATIVAN PER ORDER, PT TOLERATED WELL.
[2018-09-08] MEDS: NACL 0.9% 1,000 ML IV SCH (01:04)
[2018-09-08] MEDS: ALBUTEROL SULFATE/IPRATROPIU 3 ML SOL IH PRN (02:13)
--- NOTE | 2018-09-08 02:16 | NUR ---
RT AT BEDSIDE REQUESTED BY PT.
--- NOTE | 2018-09-08 02:17 | NUR ---
VITAL SIGNS WITHIN NORMAL LIMITS. PT STABLE, DENIES PAIN, NO SIGNS OF DISTRESS NOTED AT THIS TIME. PT POSITIONED FOR COMFORT. BED IN LOWEST POSITION, BED ALARM ON. WILL CONTINUE TO MONITOR. Addendum: 09/08/18 at 0218 by Becca Montero RN DISREGARD, WRONG TIME.
[2018-09-08] MEDS: guaiFENesin DM 200/20 MG-10 ML 10 ML UDC PO PRN ×2 (02:19→21:54)
--- NOTE | 2018-09-08 02:20 | NUR ---
PT ASKED FOR COUGH MEDICATION. ADMINISTERED ROBITUSSIN ORDERED, PT TOLERATED WELL.
[2018-09-08] MEDS: methylPREDNISolone SS 40 MG/ML VIAL IVP SCH ×3 (05:47→20:34)
--- NOTE | 2018-09-08 06:28 | NUR ---
DIARRHEA RESOLVED. NO BM DURING SHIFT.
[2018-09-08] MEDS: ALBUTEROL SULFATE/IPRATROPIU 3 ML SOL IH SCH ×3 (07:11→19:30)
[2018-09-08] MEDS: BUDESONIDE 0.5 MG/2 ML NEBU INH SCH ×2 (07:11→19:31)
[2018-09-08 07:17] LABS: HEMOGLOBIN 8.8 g/dL (12.0-16.0); MEAN CORPUSCULAR HEMOGLOBIN 28 pg (27-31); MEAN CORPUSCULAR HGB CONC 34 g/dL (33-37); MEAN CORPUSCULAR VOLUME 84.1 fL (80-94); PLATELET COUNT (AUTO) 261 K/uL (140-450); RED BLOOD CELL COUNT(AUTO) 3.09 MIL/uL (4.20-5.40); RED CELL DISTRIBUTION WIDTH 15.6 % (11.6-13.7); WHITE BLOOD COUNT (AUTO) 26.8 K/uL (4.8-10.8)
--- NOTE | 2018-09-08 07:20 | NUR ---
RECEIVED PT REPORT FROM MAINTENANCE SUPERVISOR NURSE. PT IS AWAKE AND ALERT, IS OFF THE BIPAP AT THIS TIME, ON THE OXIMIZER. NO S/S OF ACUTE DISTRESS OR SOB NOTED. SKIN IS INTACT. RUE PICC LINE IS INFUSING NS 50 ML/HR. FALL PRECAUTIONS IN PLACE. CALL LIGHT WITHIN REACH. WILL CONTINUE TO MONITOR.
--- NOTE | 2018-09-08 07:28 | NUR ---
ENDORSED PT TO DAY SHIFT RN SEGUNDO FOR CONTINUITY OF CARE. PT IN STABLE CONDITION.
[2018-09-08] MEDS: DEXT 5% /NACL 0.9% 1,000 ML IV SCH (07:35)
[2018-09-08 08:22] LABS: LYMPHOCYTES % (MANUAL) 2 % (20-46); MONOCYTES % (MANUAL) 2 % (5-12)
[2018-09-08 08:33] LABS: ANION GAP 10.9 (8-16); CARBON DIOXIDE 28.9 mmol/L (21-32); POTASSIUM 3.8 mmol/L (3.5-5.1)
[2018-09-08 08:34] LABS: CREATININE 0.8 mg/dL (0.6-1.3); MAGNESIUM 1.8 mg/dL (1.8-2.4); PHOSPHORUS 3.5 mg/dL (2.5-4.9)
[2018-09-08] MEDS: PANTOPRAZOLE 40 MG INJ VIAL IVP SCH (08:41)
[2018-09-08] MEDS: BUMETANIDE 1 MG/4 ML VIAL IV SCH (08:41)
[2018-09-08] MEDS: FLUoxetine 20 MG CAP PO SCH (08:42)
[2018-09-08] MEDS: amLODIPine 5 MG TAB PO SCH (08:42)
[2018-09-08] MEDS: ASCORBIC ACID 500 MG TAB PO SCH (08:43)
[2018-09-08] MEDS: LACTOBACILLUS RHAMNOSUS GG 1 EACH CAP PO SCH (08:43)
[2018-09-08] MEDS: FERROUS SULFATE 325 MG TABEC PO SCH (08:44)
[2018-09-08] MEDS: LOSARTAN 50 MG TAB PO SCH (08:44)
[2018-09-08] MEDS: CARVEDILOL 6.25 MG TAB PO SCH ×2 (08:44→20:35)
[2018-09-08] MEDS: APIXABAN 2.5 MG TAB PO SCH ×2 (08:47→20:36)
--- NOTE | 2018-09-08 11:00 | NUR ---
PT'S DAUGHTER IS VISITING, AND IS ASSISTING WITH A BED BATH.
--- NOTE | 2018-09-08 13:22 | NUR ---
PT HAS BEEN OFF OF HER BIPAP, AND ON THE NC OXIMIZER 8 L, SINCE THE BEGINNING OF THE SHIFT. HER O2 SATS HAVE BEEN IN THE MID-HIGH 90'S.
[2018-09-08] MEDS: LEVOFLOXACIN 750 MG/D5W PREMIX 150 ML IV SCH (14:51)
--- NOTE | 2018-09-08 14:52 | NUR ---
TX ADMINISTERED. TOLERATED WELL, NO ADVERSE REACTIONS. WILL CONTINUE TO MONITOR.
--- NOTE | 2018-09-08 15:00 | NUR ---
REMOVED PATIENT FROM SUPPLEMENTAL OXYGEN. PATIENT PULSE OX DESATURATED TO 50%. PLACED PATIENT ON BIPAP.
--- NOTE | 2018-09-08 15:06 | NUR ---
PATIENT DESATURATING, APPEARS LETHARGIC. PLACED ON BIPAP. TOLERATING WELL. ON CONTINUOUS PULSE OX. AMBU BAG AT [facility]. WILL CONTINUE TO MONITOR.
--- NOTE | 2018-09-08 16:45 | NUR ---
PT'S C/O SOB AND DESATTING TO LOW 80'S- HIGH 70'S. RT PLACED PT BACK ONTO BIPAP, AND PT'S SATS CLIMBED BACK UP TO 95%.
--- NOTE | 2018-09-08 19:30 | NUR ---
PT ENDORSED TO ENFORCEMENT SAFETY OFFICER IN STABLE CONDITION.
--- NOTE | 2018-09-08 19:31 | NUR ---
RECEIVED PT IN STABLE CONDITION FROM AM NURSE. AWAKE, ALERT AND ORIENTED X4. BEDREST. ON TELE MONITOR. FAMILY AT BEDSIDE. NO ACUTE RESPIRATORY DISTRESS NOTED. RT INSIDE ROOM GIVING BREATHING TREATMENTS. WITH IV FLUIDS INFUSING WELL ON THE RT UPPER ARM PICC LINE. WOLFE CATH DRAINING TO A CLEAR YELLOW URINE. BED ON LOWEST POSITION. CALL LIGHT PLACED WITHIN EASY REACH. FREQUENT ROUNDS NEEDED. WILL CONTINUE TOP MONITOR.
--- NOTE | 2018-09-08 20:43 | NUR ---
PT REQUESTED FOR HER ATIVAN. GIVEN ORDERED.
--- NOTE | 2018-09-08 21:00 | NUR ---
PT ON BIPAP BY RT, WITH O2 SAT 100%.
--- NOTE | 2018-09-08 21:54 | NUR ---
PT STILL WITH OCCASIONAL COUGH. REQUESTED FOR COUGH MEDICINE. GIVEN ALSO ORDERED.
--- NOTE | 2018-09-08 23:00 | NUR ---
MADE ROUNDS . PT IS ASLEEP. NO RESPIRATORY DISTRESS NOTED.
[2018-09-09] MEDS: ALBUTEROL SULFATE/IPRATROPIU 3 ML SOL IH PRN (01:08)
--- NOTE | 2018-09-09 01:17 | NUR ---
GAVE PATIENT PRN HHNTX. LOWERED FIO2 TO 80% SATS 100%
[2018-09-09] MEDS: guaiFENesin DM 200/20 MG-10 ML 10 ML UDC PO PRN ×2 (01:26→06:20)
[2018-09-09] MEDS: BUMETANIDE 1 MG/4 ML VIAL IV SCH ×2 (01:34→08:35)
[2018-09-09] MEDS: LORazepam 2 MG/ML VIAL IVP PRN ×3 (02:15→15:42)
--- NOTE | 2018-09-09 02:15 | NUR ---
PT WOKE UP AND SAID SHE CAN'T BREATH. O2 SAT 97% BUT RR ON 51/MIN. RT WAS PAGED. CAME AND ASSESSED PT.HOB ELEVATED. PT LOOKED ANXIOUS. RESIDENT MD CAME. ATIVAN IVP PRN GIVEN ORDERED. WILL CONTINUE TO MONITOR.
--- NOTE | 2018-09-09 02:20 | NUR ---
PLACED PT BACK ON 100% FIO2. PT WOKE UP SCREAMING. STATING SHE CANT BREATH. PT GIVEN ATIVAN. . PT CALMED DOWN
[2018-09-09] MEDS: DEXT 5% /NACL 0.9% 1,000 ML IV SCH ×2 (03:35→05:12)
--- NOTE | 2018-09-09 04:00 | NUR ---
PT SLEEPING. NO SOB NOTED. STILL ON BIPAP. 100% O2 SAT .
[2018-09-09] MEDS: methylPREDNISolone SS 40 MG/ML VIAL IVP SCH ×2 (04:50→12:00)
--- NOTE | 2018-09-09 04:58 | NUR ---
PT TOOK SOME WATER AT LEAST Q 2HRS. SHE SAID SHE FEELS REALLY DRY ON HER MOUTH AND THROAT USUALLY WHEN SHE COUGH.
[2018-09-09 04:59] VITALS: BP 162/84
[2018-09-09] MEDS: LOSARTAN 50 MG TAB PO SCH ×4 (06:11→08:27)
--- NOTE | 2018-09-09 06:11 | NUR ---
BP 162/84. DR. MOE RESIDENT MADE AWARE. HE SAID TO GIVE COZAAR ONCE .
[2018-09-09 06:38] LABS: CARBON DIOXIDE 29.9 mmol/L (21-32); CREATININE 0.8 mg/dL (0.6-1.3); POTASSIUM 3.9 mmol/L (3.5-5.1)
[2018-09-09 06:39] LABS: BASOPHILS % (AUTO) 0.1 % (0.0-2.0); HEMATOCRIT 25.3 % (36-48); HEMOGLOBIN 8.3 g/dL (12.0-16.0); LYMPHOCYTES # (AUTO) 0.4 K/uL (2.5-16.5); LYMPHOCYTES % (AUTO) 1.9 % (20.5-51.1); MEAN CORPUSCULAR HEMOGLOBIN 28 pg (27-31); MEAN CORPUSCULAR HGB CONC 33 g/dL (33-37); MEAN CORPUSCULAR VOLUME 84.4 fL (80-94); MONOCYTES # (AUTO) 1.3 K/uL (0.8-1.0); MONOCYTES % (AUTO) 5.5 % (1.7-9.3); NEUTROPHILS # (AUTO) 21.1 K/uL (1.8-7.7); NEUTROPHILS % (AUTO) 92.5 % (42.2-75.2); PLATELET COUNT (AUTO) 202 K/uL (140-450); RED CELL DISTRIBUTION WIDTH 15.5 % (11.6-13.7); WHITE BLOOD COUNT (AUTO) 22.8 K/uL (4.8-10.8)
[2018-09-09] MEDS: ALBUTEROL SULFATE/IPRATROPIU 3 ML SOL IH SCH ×3 (07:05→19:12)
--- NOTE | 2018-09-09 07:05 | NUR ---
REC'D PT ON BOUCHRA V60 BIPAP SETTINGS 12\6 RR 12 FIO2 100% ALARMS ON AND AUDIBLE AMBU BAG AT HOB, I\L TXS GIVEN WITH DUONEB 3ML AND PULMICORT 0.5MG WITH NO ADVERSE REACTION POST TX B\S ARE DIMINISHED BILATERALLY, PT IS WEARING MED FACE MASK WITH PROTETIC GEL IN PLACE PT IS AWAKE AND ALERT
--- NOTE | 2018-09-09 07:07 | NUR ---
REPORT RECEIVED FROM NIGHT RN. PT RESTING IN BED. AAOX4. NO S/S OF ACUTE DISTRESS. PT DENIES PAIN. PICC LINE TO RIGHT UPPER ARM PATENT AND INTACT. CALL LIGHT WITHIN REACH. SAFETY MEASURES ENSURED. WILL CONTINUE TO MONITOR.
[2018-09-09] MEDS: BUDESONIDE 0.5 MG/2 ML NEBU INH SCH ×2 (07:14→19:12)
--- NOTE | 2018-09-09 07:35 | NUR ---
ENDORSED PT IN STABLE CONDITION TO AM NURSE.
[2018-09-09] MEDS ORDERED: BENZONATATE 100 MG CAPLF PO PRN (07:40)
--- NOTE | 2018-09-09 07:52 | NUR ---
PT OFF BIPAP PLACED ON 15L OXYMIZER MAYRA MILLER NOTIFIED
[2018-09-09 07:54] LABS: MAGNESIUM 1.8 mg/dL (1.8-2.4); PHOSPHORUS 3.6 mg/dL (2.5-4.9)
[2018-09-09 08:00] VITALS: BP 172/86
[2018-09-09] MEDS: FERROUS SULFATE 325 MG TABEC PO SCH (08:27)
[2018-09-09] MEDS: CARVEDILOL 6.25 MG TAB PO SCH (08:28)
[2018-09-09] MEDS: ASCORBIC ACID 500 MG TAB PO SCH (08:28)
[2018-09-09] MEDS: amLODIPine 5 MG TAB PO SCH (08:28)
[2018-09-09] MEDS: LACTOBACILLUS RHAMNOSUS GG 1 EACH CAP PO SCH (08:28)
[2018-09-09] MEDS: FLUoxetine 20 MG CAP PO SCH (08:28)
[2018-09-09] MEDS: PANTOPRAZOLE 40 MG INJ VIAL IVP SCH (08:29)
[2018-09-09] MEDS ORDERED: LACT10CA PO (09:59)
[2018-09-09] MEDS ORDERED: FLUO-348 PO (09:59)
[2018-09-09] MEDS ORDERED: LEVO750T2 PO (10:00)
[2018-09-09] MEDS ORDERED: ROC1PM IV (10:01)
[2018-09-09] MEDS ORDERED: CARV6.252 PO (10:04)
[2018-09-09] MEDS ORDERED: FAMO-90 PO (10:04)
[2018-09-09] MEDS ORDERED: BENZ100C6 PO (10:04)
[2018-09-09] MEDS ORDERED: BENZ1LOZ93 MM (10:04)
--- NOTE | 2018-09-09 10:22 | NUR ---
PT RESTING IN BED. NO S/S OF ACUTE DISTRESS. PT DENIES PAIN. ON OXIMIZER AT 15L. CALL LIGHT WITHIN REACH. WILL CONTINUE TO MONITOR.
[2018-09-09] MEDS ORDERED: METH40PD15 IVP (10:27)
[2018-09-09] MEDS ORDERED: PRED20TA5 PO (10:35)
--- NOTE | 2018-09-09 10:36 | NUR ---
decreased fio2 to 12l an notified rn zeinab pt sleeping with no signs of distress noted
[2018-09-09 12:00] VITALS: BP 162/79
--- NOTE | 2018-09-09 12:40 | NUR ---
CALLED [facility] AND SPOKE WITH SHAUN. SHE SAID THEY CANNOT TAKE A PATIENT ON OX MORE THAT 5L AND THEY DON'T HAVE OXIMIZER. RECEIVED ORDER FOR [facility]. FAXED FACE SHEET TO THEM AND CALL BENSON MAN. HE WILL SEE THE PATIENT LATER TODAY.
--- NOTE | 2018-09-09 12:43 | NUR ---
1200 MET WITH PATIENT AT BEDSIDE TO DISCUSS DISCHARGE PLAN. PATIENT'S GOAL IS TO RETURN HOME WHERE SHE RESIDES ALONE. DISCUSSED WITH HER AT THIS TIME SHE IS NOT STABLE ENOUGH TO GO HOME AND THAT [facility] IS THE RECOMMENDATION. EXPLAINED TO HER WHAT THE [facility] LEVEL OF CARE IS AND SERVICES PROVIDED AND PATIENT IS IN AGREEMENT TO GO TO [facility]. PROVIDED PATIENT WITH THE [facility] IN [place] AND SHE SAID THAT WAS GOOD.
--- NOTE | 2018-09-09 13:50 | NUR ---
SPOKE WITH WILLIAN AT [facility]. THEY CANNOT TAKE A PATIENT WITH MORE THAN 5L O2.
--- NOTE | 2018-09-09 15:13 | NUR ---
BENSON FROM [facility] WAS HERE AND SAW PATIENT. HE WILL CALL THE FLOOR WHEN A BED BECOMES AVAILABLE AT [facility].
[2018-09-09] MEDS: LEVOFLOXACIN 750 MG/D5W PREMIX 150 ML IV SCH (15:41)
[2018-09-09 16:00] VITALS: BP 159/72
--- NOTE | 2018-09-09 17:50 | NUR ---
PT RESTING IN BED. NO S/S OF ACUTE DISTRESS. PT DENIES PAIN. CALL LIGHT WITHIN REACH. SAFETY MEASURES ENSURED. WILL CONTINUE TO MONITOR.
--- NOTE | 2018-09-09 18:00 | NUR ---
PATIENT AN GO TO ROOM [address] [place] [address] ANY TIME AFTER 1899 PER BENSON. Addendum: 09/09/18 at 1829 by Patrick Ash RN ROOM [facility]
--- NOTE | 2018-09-09 18:31 | NUR ---
Patient will go to room 401C
--- NOTE | 2018-09-09 19:01 | NUR ---
REPORT CALLED TO [facility]. 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 WOLFE DISCONTINUED PER DR. ANN ORDERS. PICC LINE RETAINED.
--- NOTE | 2018-09-09 19:12 | NUR ---
RECEIVED ON A [facility] [employer] V60 BIPAP PLUGGED INTO RED OUTLET TOLERATING WELL TO A MEDIUM FACIAL MASK SECURED WITH HEAD GEAR GrafightersIMO RADIAL-7 CONTINUOS PULSE OXIMETER AT BEDSIDE ON AND FUNCTIONING WELL LOW SATURATION ALARM SET AT 90% [facility]BU [facility] AT [facility] LOC AWAKE AND ALERT RESTING COMFORTABLY BREATH CLEAR BILATERAL WITH GOOD CHEST RISE AND AERATION THROUGHOUT PULMONARY [place]BRIDE
--- NOTE | 2018-09-09 19:30 | NUR ---
RECEIVED BEDSIDE REPORT FROM PAUL RN, PT STABLE, NO DISTRESS NOTED, PICC LINE TO THE RUE, PATENT, INTACT, INFUISNG D51/2 NS @ 50ML/HR, INFUSING WELL, PT ON BIPAP 70% FIO2, NO SOB NOTED, INITIAL ASSESSMENT DONE, ALL SAFETY PRECAUTION MET, WILL CONTINUE TO MONITOR.
--- NOTE | 2018-09-09 19:31 | NUR ---
SATURATION 99% ON FIO2 OF 80% POST HHN THERAPY TITRATED FIO2 TO 70% RN AWARE
--- NOTE | 2018-09-09 20:10 | NUR ---
PT LEFT UNIT IN STABLE CONDITION, NO DISTRESS NOTED, Shabbir RUTLEDGE IN PLC, TELE MONITOR TAKEN OUT, WRIST BAND TAKEN OFF. Addendum: 09/09/18 at 2220 by Verena Xavier RN PT D/C TO [facility]
== END 2018-09-09 20:10 | DRG 871 ==
LOC: MED 10:18 → MMU 14:04 → MIC 09-02 10:00 → MTU 09-04 18:20
PROVIDERS: ADMIT General Practice; ATTEND General Practice
PROC: 02HV33Z Insertion of Infusion Device into Superior Vena Cava, Percutaneous Approach (ICD-10-PCS; 2018-08-31)
PROC: B548ZZA Ultrasonography of Superior Vena Cava, Guidance (ICD-10-PCS; 2018-08-31)
PROC: 5A1945Z Respiratory Ventilation, 24-96 Consecutive Hours (ICD-10-PCS; principal; 2018-09-02)
PROC: 5A09357 Assistance with Respiratory Ventilation, Less than 24 Consecutive Hours, Continuous Positive Airway Pressure (ICD-10-PCS; 2018-09-02)
PROC: 0BH17EZ Insertion of Endotracheal Airway into Trachea, Via Natural or Artificial Opening (ICD-10-PCS; 2018-09-02)
PROC: 5A09457 Assistance with Respiratory Ventilation, 24-96 Consecutive Hours, Continuous Positive Airway Pressure (ICD-10-PCS; 2018-09-06)
DX: A41.9 Sepsis, unspecified organism (principal); J69.0 Pneumonitis due to inhalation of food and vomit; J96.21 Acute and chronic respiratory failure with hypoxia; N17.0 Acute kidney failure with tubular necrosis; I50.43 Acute on chronic combined systolic (congestive) and diastolic (congestive) heart failure; E87.1 Hypo-osmolality and hyponatremia; I42.9 Cardiomyopathy, unspecified; N39.0 Urinary tract infection, site not specified; E87.6 Hypokalemia; F31.9 Bipolar disorder, unspecified; E78.5 Hyperlipidemia, unspecified; F41.9 Anxiety disorder, unspecified; G89.4 Chronic pain syndrome; Z79.01 Long term (current) use of anticoagulants; Z79.899 Other long term (current) drug therapy; Z88.8 Allergy status to other drugs, medicaments and biological substances; Z88.0 Allergy status to penicillin; Z95.0 Presence of cardiac pacemaker; M79.7 Fibromyalgia; R53.82 Chronic fatigue, unspecified; M19.90 Unspecified osteoarthritis, unspecified site; E78.2 Mixed hyperlipidemia; E87.8 Other disorders of electrolyte and fluid balance, not elsewhere classified; I48.2 Chronic atrial fibrillation; I25.10 Atherosclerotic heart disease of native coronary artery without angina pectoris; Z90.710 Acquired absence of both cervix and uterus; I25.2 Old myocardial infarction; I11.0 Hypertensive heart disease with heart failure; Z98.84 Bariatric surgery status; D50.9 Iron deficiency anemia, unspecified; E83.41 Hypermagnesemia
CPT/HCPCS: 36415; 36600; 71045; 71046; 80048; 80202; 80305; 81001; 81003; 82150; 82272; 82306; 82607; 82728; 82746; 82803; 83036; 83540; 83605; 83690; 83735; 83880; 83930; 83935; 84100; 84300; 84439; 84443; 84484; 85025; 85045; 85610; 85730; 87040; 87045; 87070; 87081; 87086; 87205; 87804; 89055; 89220; 92610; 93005; 94002; 94003; 94640; 94660; 97110; 97116; 97164; 97530; 99285; C1751; C9113; J0692; J0696; J1940; J1956; J2060; J2270; J2704; J2920; J3370; J3475; J3490; J7030; J7042; J7060; J7620; J7626; Q0092